=== PATIENT | male | born 1970 | race Caucasian/White ===

== ENCOUNTER 2018-03-01 04:15 | Inpatient (IN) ==
[2018-03-01 05:21] LABS: BASO# 0.03 X1000 (0.0-0.2); BASO% 0.2 % (0.0-0.8); EOS# 0.14 X1000 (0.0-0.7); EOS% 1.1 % (0.0-10.0); HEMATOCRIT 36.6 % (42.0-52.0); HEMOGLOBIN 10.9 g/dL (14.0-18.0); IMM GRAN# 0.02 X1000 (0.0-0.04); IMM GRAN% 0.2 % (0.0-0.5); LYMPH# 0.68 X1000 (1.2-3.4); LYMPH% 5.2 % (20.5-51.1); MCH 28.5 PG (27-31); MCHC 29.8 g/dL (33-37); MCV 95.6 FL (81-99); MONO# 0.59 X1000 (0.11-0.59); MONO% 4.5 % (1.7-9.3); MPV 10.9 FL (7.4-10.4); NEUT# 11.73 X1000 (1.4-6.5); NEUT% 88.8 % (42.2-75.2); PLT 353 X1000 (130-400); RBC 3.83 XMIL (4.7-6.1); RDW 17.7 % (11.5-14.5); WBC 13.19 X1000 (4.8-10.8)
[2018-03-01 05:55] LABS: LYMPHS 12 % (21-51); MONO 14 % (1-9); SEGS 74 % (42-75)
[2018-03-01 06:19] LABS: ALB/GLOB RATIO 0.7; ALBUMIN 3.4 g/dL (3.5-5.0); CALCIUM 8.5 mg/dL (8.8-10.2); CREATININE 6.2 mg/dL (0.7-1.2); POTASSIUM 5.2 mmol/L (3.5-5.1); TOTAL BILIRUBIN 0.37 mg/dL (0.20-1.00); TOTAL PROTEIN 8.3 g/dL (6.3-8.3)
[2018-03-01] MEDS ORDERED: NORCO-5 PO ONE (06:35)
--- NOTE | 2018-03-01 07:02 | Diag Imaging Result Doc PS360 ---
EXAM: CHEST-1 VIEW 03/01/2018 HISTORY: sob TECHNIQUE: AP portable at 0501 COMMENT: There is interstitial and alveolar opacity the latter particularly in the left upper lobe. There is blunting of the left costophrenic angle. IMPRESSION: Worsened pulmonary edema with possible pneumonia in the left upper lobe. Left pleural effusion. Electronically signed by Jackson Shin 03/01/2018 7:00 AM
[2018-03-01] MEDS ORDERED: DUONEB (A & A) INH ONE (07:14)
[2018-03-01] MEDS ORDERED: VANCOMYCIN 1 GM/NS 1 GM/250 ML IVPB IV ONE (07:24)
[2018-03-01] MEDS ORDERED: ZOSYN 2.25 GM in NS 50 ML IV ONE (07:25)
--- NOTE | 2018-03-01 07:31 | EKG Report ---
Test Performed on : 03/01/2018 04:57:58 AM Test Reason : sob Blood Pressure : / mmHG Vent. Rate : 083 BPM Atrial Rate : 083 BPM P-R Int : 124 ms QRS Dur : 102 ms QT Int : 380 ms P-R-T Axes : 065 024 185 degrees QTc Int : 446 ms Normal sinus rhythm. Possible Left atrial enlargement Left ventricular hypertrophy with repolarization abnormality Possible Inferior infarct (cited on or before 04-JAN-2018) Abnormal ECG When compared with ECG of 04-JAN-2018 12:48, T wave inversion more evident in Anterolateral leads Unconfirmed Result
--- NOTE | 2018-03-01 07:40 | PROVIDER DOCUMENTATION ---
HPI-General Adult - General Chief Complaint: Shortness of Breath Stated Complaint: DIFFICULTY BREATHING , DIALYSIS PATIENT Time Seen by Provider: 03/01/18 04:25 Source: patient, family Allergies/Adverse Reactions: Patient Allergies Allergy/AdvReac Type Severity Reaction Status Date / Time No Known Allergies Allergy Verified 03/01/18 07:51 Home Medications: Home Medication List Medication Instructions Recorded Confirmed Last Taken Type Albuterol Sulfate 1.25 mg IH Q4HR PRN 01/04/18 03/01/18 Unknown History Atorvastatin Calcium [Lipitor] 40 mg PO QHS 01/04/18 03/01/18 01/03/18 21:00 History Budesonide/Formoterol Inhaler 1 puff IH BID 01/04/18 03/01/18 01/04/18 07:00 History [Symbicort 160/4.5 Microgm Inhaler] Carvedilol [Coreg] 25 mg PO BID 01/04/18 03/01/18 01/04/18 07:00 History Clonidine HCl [Catapres] 0.2 mg PO TID 01/04/18 03/01/18 01/04/18 07:00 History Calcium Carbonate [Caltrate 600] 600 mg PO DAILY #90 tab 01/10/18 03/01/18 Unknown Rx Cholecalciferol (Vit D3) [Vitamin 5,000 unit PO DAILY #90 cap 01/10/18 03/01/18 Unknown Rx D] Hydrocodone Bit/Acetaminophen 1 tab PO TID PRN PRN #60 tab 01/10/18 03/01/18 Unknown Rx [Hydrocodon-Acetaminoph 7.5-325] - History of Present Illness -Gen Adult Nature of Presenting Problems: Presents tonight complaining of progressively worsening SOB today with associated non-productive cough. He has ESRD and is dialysis dependent. He was dialyzed on Tuesday. He also has a history of COPD and states taking neb treatments at home before coming in with minimal relief. Review of Systems - Adult - REVIEW OF SYSTEMS - ADULT Constitutional: reports: chills, fatique. denies: fever Eyes: denies: discharge, decreased vision Ears, Nose, Mouth & Throat: reports: no symptoms reported Cardiovascular: denies: chest pain, syncope Respiratory: reports: see HPI Gastrointestinal: reports: no symptoms reported Genitourinary: reports: no symptoms reported Musculoskeletal: reports: no symptoms reported Integumentary: reports: no symptoms reported Neurological: reports: no symptoms reported Psychiatric: reports: no symptoms reported Endocrine: reports: no symptoms reported Hematologic/Lymphatic: reports: no symptoms reported Allergic/Immunologic: reports: no symptoms reported Past History - Adult - PAST MEDICAL HISTORY-ADULT Review of Records: reports: Nursing Assessment Review, Medications Reviewed Major Childhood Illnesses: reports: denies history Cardiovascular: reports: denies history Respiratory: reports: denies history Gastrointestinal: reports: denies history Obstetrical/Gynecological: reports: denies history Genitourinary: reports: dialysis, ESRD Musculoskeletal: reports: denies history Neurological: reports: denies history Psychiatric: reports: denies history Endocrine/Immune: reports: denies history Other Conditions: reports: denies history - PRIOR SURGERIES/PROCEDURES Surgical/Procedure History: reports: reviewed, not pertinent - IMMUNIZATION STATUS Childhood Immunizations: See Nurse Assessment Flu Vaccine: See Nurse Assessment - FAMILY HISTORY Family History: reviewed, not pertinent Physical Exam-General - PHYSICAL EXAM-ADULT Initial Vital Signs Reviewed: Yes - CONSTITUTIONAL General Appearance: alert, mild distress - EYES Eyes: PERRL/EOMI, pink conjunctivae - HEAD, EARS, NOSE, MOUTH & THROAT HENMT: normocephalic/atraumatic, moist mucous membranes, normal ENT inspection - NECK Neck: non-tender, full range of motion, supple, normal inspection - RESPIRATORY Respiratory: chest non-tender, respiratory distress (mild.), decreased breath sounds (bilaterally.) - CARDIOVASCULAR Cardiovascular: normal peripheral pulses, regular rate, rhythm, no edema, no JVD - GASTROINTESTINAL (ABDOMEN) Abdominal Exam: normal bowel sounds, non tender, soft. negative: guarding, rebound, tenderness - LYMPHATIC Lymphatic: no adenopathy - MUSCULOSKELETAL Back Exam: normal inspection, no CVA tenderness, no vertebral tenderness Extremity: normal range of motion, non-tender, normal gait, no pedal edema, normal capillary refill - SKIN Integumentary: normal color, normal turgor, warm/dry. negative: diaphoresis, embolic lesions, erythema - NEUROLOGIC Neurologic: negative: facial droop, focal weakness, motor weakness, sensory deficit - PSYCHIATRIC Psych/Mental Status: normal mood/affect Progress - PLAN OF CARE/RESULTS Progress/Plan/Lab Results: Vital Signs - 8 hr 03/01/18 04:29 03/01/18 06:42 03/01/18 06:51 Temperature 97.9 F Pulse Rate 89 90 90 Respiratory Rate 22 20 20 Blood Pressure 164/94 181/107 181/107 O2 Sat by Pulse Oximetry 100 95 97 Laboratory Results - last 24 hr 03/01/18 03/01/18 03/01/18 04:57 04:57 04:57 WBC 13.19 H RBC 3.83 L Hgb 10.9 L Hct 36.6 L MCV 95.6 MCH 28.5 MCHC 29.8 L RDW Std Deviation 17.7 H Plt Count 353 MPV 10.9 H Immature Gran % (Auto) 0.2 Neut % (Auto) 88.8 H Lymph % (Auto) 5.2 L Reeves % (Auto) 4.5 Eos % (Auto) 1.1 Baso % (Auto) 0.2 Immature Gran # (Auto) 0.02 Neut # (Auto) 11.73 H Lymph # (Auto) 0.68 L Reeves # (Auto) 0.59 Eos # (Auto) 0.14 Baso # (Auto) 0.03 Segmented Neutrophils 74 Lymphocytes 12 L Monocytes 14 H Sodium 140 Potassium 5.2 H Chloride 94 L Carbon Dioxide 20 L Anion Gap 26 BUN 92 H Creatinine 6.2 H Estimated GFR/1.73 m2 10 BUN/Creatinine Ratio 15 Glucose 91 Calculated Osmolality 307 Calcium 8.5 L Total Bilirubin 0.37 AST 18 ALT 12 Alkaline Phosphatase 196 H Troponin T 0.760 H* Total Protein 8.3 Albumin 3.4 L Globulin 4.9 Albumin/Globulin Ratio 0.7 Orders Category Date Time Status CHEST-1 VIEW [RAD] Stat Exams 03/01/18 04:43 Completed BC [BLOOD CULTURE] [BLDCUL] Stat Lab 03/01/18 07:27 Uncollected CBC WITH DIFF [HEME] Stat Lab 03/01/18 04:57 Completed COMPREHENSIVE METABOLIC PANEL [CHEM] Stat Lab 03/01/18 04:57 Completed TROPONIN T Stat Lab 03/01/18 04:57 Completed Albuterol 2.5MG/Ipratrop 0.5MG [Duoneb (A & A)] Med 03/01/18 07:14 Discontinued 3 ml INH NOW ONE Hydrocodone/APAP 5 mg/325 mg [[place]-5] Med 03/01/18 06:35 Discontinued 1 each PO NOW ONE Piperacillin/Tazobactam [Zosyn] 2.25 gm Med 03/01/18 07:25 Active 0.9% Sodium Chloride Inj [Ns] 50 ml IV NOW Vancomycin 1 gm/Ns Med 03/01/18 07:24 Active 1 gm in 250 ml IV NOW Aerosol Treatments Routine Oth 03/01/18 07:14 Active Aerosol Treatments Stat Oth 03/01/18 07:14 Active EKG [EKG] Stat Ther 03/01/18 04:43 Draft Case discussed with Dr Cook who saw the pt in the ED. He will be dialized this AM. He also appears to have a JENNIFER infiltrate. He was treated for hospital acquired PNA. He was admitted to the hospitalist service. Case discussed with IRIS Quintana. Result Diagrams: 03/01/18 04:57 03/01/18 04:57 Departure - Departure Date of Disposition Decision: 03/01/18 Time of Disposition Decision: 07:38 DIAGNOSIS: ESRD (end stage renal disease) on dialysis Pulmonary edema Qualifiers: Chronicity: acute Qualified Code(s): J81.0 - Acute pulmonary edema Pneumonia Qualifiers: Pneumonia type: due to unspecified organism Laterality: left Lung location: upper lobe of lung Qualified Code(s): J18.1 - Lobar pneumonia, unspecified organism Disposition: ADMITTED INPATIENT 09 Certified Medical Emergency: Emergent Condition: Fair - Critical Care Note This patient required my direct & personal management of CC.: No Attestation - Physician/ PRICILA Attestation The physician spent face to face time with patient:: Yes Advanced Practice Provider documentation review:: Supervising physician onsite and consulted in the evaluation and care of this patient. The physician did have a face to face encounter with the patient.
--- NOTE | 2018-03-01 07:47 | NEPHROLOGY CONSULTATION ---
DATE: 03/01/2018 REASON FOR CONSULTATION: Shortness of breath and cough. I was contacted directly by the emergency room physician, Dr. Kay. HISTORY OF PRESENT ILLNESS: Mr. Blanton is a 47-year-old white male that we met during a recent hospitalization from January 04 until January 10. At that time, he had just recently moved to [place] from [place] state in order to live with his sister. He is dialyzing currently at the local [facility] every Tuesday, Tuesday, and Tuesday. He received his treatment on Tuesday. He was well until yesterday, when he had increasing shortness of breath through the day such that he used his nebulizer for several extra treatments during the day. However, he was able to go to bed last night without shortness of breath. He was awakened with dyspnea and this was not able to be controlled at home and so he came to the emergency room for evaluation. His initial evaluation was at 4:29, at which time, his blood pressure was 169/94, and he had normal O2 saturation of 100% on a closed face mask. Currently, he still remains short of breath. He admits to a cough but no sputum production. No chills, fever, sweats, night sweats. He has anorexia, but is eating somewhat better overall. He is continuing to lose weight, however. No chest pain. No nausea, no vomiting, no diarrhea. His functional status is significantly limited because of hip pain. The family relates an orthopedic problem with the left hip that is unresolved. PAST MEDICAL HISTORY: Diabetes, hypertension, COPD, CKD 5D. HOME MEDICATIONS: Include atorvastatin, clonidine, albuterol, budesonide, formoterol, carvedilol, clopidogrel, hydralazine, calcium carbonate, vitamin D, hydrocodone. ALLERGIES: None. SOCIAL HISTORY: He lives with his sister. Continues to smoke. FAMILY HISTORY: Otherwise noncontributory. REVIEW OF SYSTEMS: Otherwise noncontributory. PHYSICAL EXAMINATION: Vital Signs: Blood pressure 181/107, heart rate 90, respirations 20, afebrile. Generally: He is a chronically ill middle-aged man, who has increased work of breathing. Skin: Warm and dry with mild hyperpigmentation and bruises. Conjunctivae are pink and moist. Pupils are equal and round. Oropharynx is clear. Normal tongue. Neck: Supple. Trachea is midline. Neck vein distention is present. Heart: PMI is not palpable. Regular rate and rhythm without gallops, murmurs, rubs. Lungs: Have equal excursion, equal breath sounds. Few scattered wheezes and crackles bilaterally. Accessory muscle use is present with retractions. Abdomen: Soft and nontender. Bowel sounds are present. No organomegaly, or masses, or bruits. Extremities: Have 1+ edema. No clubbing or cyanosis. Neurologic: Grossly nonfocal. IMPRESSION AND PLAN: Acute respiratory distress secondary to pulmonary edema. Chest x-ray has bilateral infiltrates primarily in the mid lung zones, left greater than right. Cardiac silhouette is modestly enlarged. He has a modestly elevated white count. I expect that this is pulmonary edema only. We will treat him with dialysis this morning using a 2 potassium bath and a target of 3 to 4 L ultrafiltration. Reassess his symptoms thereafter. If resolved, he can be discharged. We will also plan nitroglycerin, now while are awaiting dialysis. He has a history of a left lung pneumonia, and has had a chest tube on that side. He had no chronic changes on the left as of his chest x-ray performed on the 05 of January. cc: González Arteaga MD
[2018-03-01] MEDS ORDERED: NS 2,000 ML MISC PRN (08:23)
[2018-03-01] MEDS ORDERED: TIGHT: 0.2 ML/HR FOR DIALYSIS MISC PRN (08:23)
[2018-03-01] MEDS ORDERED: HEPARIN IV PRN (08:23)
[2018-03-01] MEDS ORDERED: TYLENOL PO PRN (08:28)
[2018-03-01] MEDS: HEPARIN SUBQ SCH ×2 (08:30→21:31)
[2018-03-01] MEDS ORDERED: SYMBICORT 160/4.5 MICROGM INHALER INH SCH (09:00)
[2018-03-01] MEDS: VITAMIN D PO SCH (09:00)
[2018-03-01] MEDS: CALTRATE 600 PO SCH (09:00)
[2018-03-01] MEDS ORDERED: SOLU-MEDROL IV ONE (09:12)
[2018-03-01] MEDS: CATAPRES PO SCH ×3 (09:21→17:00)
[2018-03-01] MEDS: COREG PO SCH ×2 (09:22→21:32)
[2018-03-01 09:31] LABS: BLOOD TYPE ARTERIAL; HCO3-(ACT) 20.1 mmoll (20.0-26.0); METHB 0.7 % (0.0-1.5); O2(CT) 13.8 mL/dL (15.0-23.0); O2HB 91.7 % (95.0-99.0); PO2(98.6) 78 mmHg (60-100); SAMPLE BLOOD; SAO2 94.2 % (95.0-100.0); THB 10.6 g/dL (11.5-17.4)
[2018-03-01 09:35] LABS: pH(98.6) 7.18 (7.35-7.45)
[2018-03-01 09:36] LABS: ALLEN TEST NO; MODALITY CANNULA; PCO2(98.6) 61 mmHg (35-45)
[2018-03-01] MEDS: MUCINEX PO SCH ×2 (09:45→21:31)
--- NOTE | 2018-03-01 10:07 | Diag Imaging Result Doc PS360 ---
EXAM: CT THORAX W/O CONTRAST HISTORY: hypoxia; pna TECHNIQUE: CT chest without contrast COMPARISON: None. FINDINGS: There is a small right-sided pleural effusion measuring 2.1 cm posteriorly and inferiorly and an even smaller left-sided pleural effusion. The heart is enlarged and there is prominent atherosclerosis. The patient has severe emphysema and there is scarring in the apices. Dense infiltrates are found inferiorly and anteriorly in the left upper lobe and there are small underlying cavities. Smaller infiltrates are present in the lower lobes, left greater than right and there is also a 9 mm nodule posteriorly and inferiorly in the left lower lobe. Bronchial wall thickening is present. There is calcified mediastinal and hilar lymph nodes with scattered granuloma. There is body wall edema is present. There is a right jugular portacatheter. No pneumothorax. Dilatation of the aorta at the thoracic abdominal junction measuring 4.0 cm. There are enlarged lymph nodes in each axilla. IMPRESSION: 1.Bilateral infiltrates most prominent in the left upper lobe 2.Cardiomegaly with pleural effusions 3.Severe emphysema with fibrosis 4.Distal thoracic and upper abdominal aortic aneurysm. Prominent atherosclerosis. 5.Body wall edema 6.There is evidence of a prior granulomatous infection 7.Prominent axillary lymph nodes This exam was performed using automated exposure control, adjustment of mA or kV according to patient size, and/or use of iterative reconstruction technique. Electronically signed by Dima Lopez 03/01/2018 10:05 AM
[2018-03-01 10:25] LABS: IRON SATURATION 23 %; TIBC 160 ug/dL; TOTAL IRON 36 ug/dL (53-167); UNBOUND IRON 124 ug/dL (112-346)
--- NOTE | 2018-03-01 10:57 | HISTORY AND PHYSICAL ---
PRIMARY CARE PROVIDER: Currently no one local. PRIMARY REGIONAL SAFETY MANAGER: Dr. Imer Simmons in [place]. DIALYSIS LOCATION: He is otherwise being dialyzed at [facility] in [place] with Dr. Garcia. CHIEF COMPLAINT: Shortness of breath. HISTORY OF PRESENT ILLNESS: Mr. Chuckie Blanton is a 47-year-old, very ill- appearing male, anorexic, short of breath with a history of end-stage renal disease on dialysis who has received dialysis Tuesday and Tuesday, and is scheduled for dialysis today. Also a history of congestive heart failure, COPD on 3-4 L of oxygen at home, and recently closed right hip fracture that has not surgically been repaired. Now presents with complaint of shortness of breath that started around midnight. He denies any fever, chills, or chest pain. No other complaints. He states he has been taking his medications as prescribed. Showed up with hypoxia along with COPD exacerbation. Imaging shows that he has fluid volume overload on his lungs, and he also has a left upper lobe infiltrate. So, we will admit for volume overload, respiratory failure, and pneumonia. He has an elevated white blood cell count of 13. Lactate is normal at 0.6. Vital signs are currently stable and he is tolerating nasal cannula, but we are going to change him over to BiPAP and admit to [facility]. He will urgently go for hemodialysis. PAST MEDICAL HISTORY: 1. End-stage renal disease. Receives hemodialysis. Most recently was Tuesday due to clinic closed Tuesday for holiday. He is due for dialysis today. 2. New onset seizures diagnosed in November. No home medications for this. 3. Hypertension. 4. Peripheral vascular disease. 5. Congestive heart failure. 6. COPD on 3-4 L of home O2. 7. Pulmonary emboli with DVT history. Currently not on anticoagulation for that. 8. Coronary artery disease with cardiac stents. 9. [employer] work-incident related accident with blasting accidents of left wrist and has been disabled since. 10.Closed right hip fracture, unrepaired secondary to recent anticoagulation use. And he has been essentially bedbound since. PAST SURGICAL HISTORY: 1. VAS cath placement. 2. Testicular surgery at age 14. 3. Cardiac stents likely in [place]. SOCIAL HISTORY: He is . Lives close to [place], but currently living with his sister. Denies alcohol or illicit drug use. He continues to smoke cigarettes daily. FAMILY HISTORY: Denies. ALLERGIES: No known drug allergies. HOME MEDICATIONS: 1. Lipitor 40 mg p.o. nightly. 2. Albuterol inhaled q.4 hours p.r.n. 3. Symbicort one puff inhaled b.i.d. 4. Coreg 25 mg p.o. b.i.d. 5. Catapres 0.2 mg p.o. t.i.d. 6. Caltrate 600 mg p.o. daily. 7. Vitamin D 5000 units p.o. daily. 8. Hart 7.5 mg one tablet p.o. t.i.d. p.r.n. REVIEW OF SYSTEMS: Complains of right hip pain, shortness of breath, and feeling drowsy. Otherwise denies chest pain or any other complaints. So, a 14 point review of systems were completed and all were negative except those mentioned above in HPI. PHYSICAL EXAM: VITAL SIGNS: Temperature 97.9 degrees Fahrenheit, heart rate 95, respiratory rate 26, blood pressure 159/100. O2 saturation 97% on 6 L nasal cannula. GENERAL: Mr. Chuckie Blanton is a 47-year-old, ill-appearing male. He is drowsy. He is able to answer some questions appropriate. HEENT: Head: Normocephalic/atraumatic. Eyes: Pupils are equal, round and reactive to light. Extraocular movements are intact. ENT: Moist and pale mucous membranes. NECK: Trachea is midline. CARDIOVASCULAR: S1, S2. Regular rate and rhythm. No rubs, gallops or murmurs. No lower extremity edema. Plus-two dorsalis and radial pulses. Mild JVD. No carotid bruits. PULMONARY: Expiratory wheezes throughout. No accessory muscle use or work of breathing noted. Currently tolerating 6 L. GASTROINTESTINAL: Soft, nontender, nondistended. Positive bowel sounds x4 that are hypoactive. EXTREMITIES: Unable to move right lower extremity due to right hip pain from recent fracture. Otherwise, all other extremities move equally. He has generalized weakness. NEUROLOGIC: Alert and oriented to time, place and year. Follows commands. Sensory is intact. SKIN: Warm, dry, intact, but very pale. Scattered black dots on the left hand and wrist area. LABORATORY DATA: White blood cell 13.0, hemoglobin 10, hematocrit 36, platelet count 353,000. ABG: pH 7.18, pCO2 61, pO2 78, bicarb 20. Saturation negative 6. Saturation of 91%. Lactate 0.6 and this is on 5 L nasal cannula. Sodium 140, potassium 5.2, BUN 92, creatinine 6.2, glucose 91, calcium 8.5, bilirubin 0.37. AST 18, ALT 12. Troponin trends 0.760, 0.673. Albumin 3.4. IMAGIN. Chest x-ray worsening pulmonary edema with possible pneumonia in the left upper lobe, left pleural effusion. 2. Chest CT performed but not reported yet. 3. EKG normal sinus rhythm with possible left atrial enlargement. Rate is 83 and QTc is 446. IMPRESSION AND PLAN: 1. Acute hypoxemic hypercarbic respiratory failure with chronic obstructive pulmonary disease exacerbation. He will be started on steroids. Change him to BiPAP. He is retaining CO2 with a low pH. The pH should improve with hemodialysis. We will consult Pulmonology. He will have nebulizers as well. 2. Left upper lobe pneumonia healthcare associated secondary to hemodialysis clinic. We will start him on broad-spectrum antibiotics, and order a sputum culture and pulmonary toilet. 3. Fluid volume overload secondary to end-stage renal disease and congestive heart failure. He is going for urgent hemodialysis today. Dr. Garcia is on board. He was actually scheduled for hemodialysis today. His last hemodialysis treatments were on Tuesday due to holiday schedule. 4. Congestive heart failure. Could be acute on chronic. We will order an echocardiogram for in the morning to evaluate heart function and we will limit fluid intake. He will be receiving dialysis today. 5. Hypertension. We are continuing his Coreg and clonidine. 6. History of PE and DVT. No anticoagulation noted that he has been on at home. He had a recent history of being on anticoagulation, but the medication name was never verified. 7. Coronary artery disease with history of myocardial infarction in 2018. He will continue on Lipitor and Coreg. 8. Recent new onset seizure, I believe in November. He is not on any medication for this as well, nor has he had any seizures. 9. Recent closed right hip fracture in October 2017. No surgical repair. He has been bedbound since then. Apparently he was supposed to have evaluation of treatment for this in [place], possibly [facility]. He did not have surgical repair due to being on anticoagulation. He is not on any now but is causing him some high hip pain, so we will continue him on his Hart. Reading Dr. Shah's note from his last admit says acetabular fracture does need to be fixed, but unfortunately we are unable to perform that type of procedure here. Otherwise, he needs to go to [facility] to have it fixed or have another orthopedic surgeon who can do the specific procedure. He is to continue to be nonweight bearing. 10.Anemia, chronic. We will perform anemia labs, but this is likely secondary to end-stage renal disease. 11.Tobacco abuse. Cessation discussed. 12.Deep venous thrombosis prophylaxis. Heparin subcutaneous twice daily. Dictated by SNEHA Barajas for Jhon Mancia MD cc: MD Lilian Crenshaw CRNP Gregory S. Cheatham, MD [facility]
[2018-03-01 11:28] LABS: FERRITIN 516 ng/mL (30-400)
[2018-03-01] MEDS: DUONEB (A & A) INH SCH ×4 (11:30→23:38)
[2018-03-01] MEDS: NORCO-7.5 PO PRN ×2 (14:22→21:32)
[2018-03-01] MEDS: SOLU-MEDROL IV SCH (17:45)
[2018-03-01] MEDS: ZOSYN 2.25 GM in NS 50 ML IV SCH (17:45)
[2018-03-01] MEDS: PULMICORT INH SCH (19:43)
[2018-03-01] MEDS: MUCOMYST 10% INH SCH (19:43)
[2018-03-01] MEDS: LIPITOR PO SCH (21:31)
[2018-03-01] MEDS: ZYVOX 600 MG/D5W 600 MG/300 ML IVPB IV SCH (21:32)
[2018-03-02] MEDS: ZOSYN 2.25 GM in NS 50 ML IV SCH ×3 (01:22→17:14)
[2018-03-02] MEDS: SOLU-MEDROL IV SCH ×3 (01:22→17:13)
[2018-03-02] MEDS: NORCO-7.5 PO PRN ×3 (02:10→18:22)
[2018-03-02] MEDS: DUONEB (A & A) INH SCH ×7 (03:40→23:00)
--- NOTE | 2018-03-02 05:16 | HISTORY AND PHYSICAL ---
ADDENDUM: Patient seen and examined by myself. Full note dictated and discussed with nurse practitioner. The patient presented to the hospital with increased cough, congestion, shortness of breath, increased wheezing. Blood pressure was noted to be elevated at 191/107. White count elevated at 13. Potassium 5.2. Patient has end-stage renal disease, currently on dialysis. We will admit him to the hospital. We will go to dialysis. We will place him on antibiotics for his pneumonia, and will follow. cc: Jhon Mancia MD
[2018-03-02 06:25] LABS: HEMATOCRIT 34.2 % (42.0-52.0); HEMOGLOBIN 10.2 g/dL (14.0-18.0); LYMPH# 0.28 X1000 (1.2-3.4); LYMPH% 4.2 % (20.5-51.1); MCH 28.6 PG (27-31); MCHC 29.8 g/dL (33-37); MCV 95.8 FL (81-99); MONO# 0.08 X1000 (0.11-0.59); MONO% 1.2 % (1.7-9.3); NEUT# 6.35 X1000 (1.4-6.5); NEUT% 94.6 % (42.2-75.2); PLT 280 X1000 (130-400); RBC 3.57 XMIL (4.7-6.1); RDW 17.9 % (11.5-14.5); WBC 6.71 X1000 (4.8-10.8)
[2018-03-02 07:03] LABS: ALB/GLOB RATIO 0.7; ALBUMIN 2.9 g/dL (3.5-5.0); CALCIUM 8.3 mg/dL (8.8-10.2); CREATININE 4.2 mg/dL (0.7-1.2); POTASSIUM 4.6 mmol/L (3.5-5.1); TOTAL BILIRUBIN 0.41 mg/dL (0.20-1.00); TOTAL PROTEIN 7.2 g/dL (6.3-8.3)
[2018-03-02 07:18] LABS: LYMPHS 8 % (21-51); SEGS 92 % (42-75)
--- NOTE | 2018-03-02 07:22 | PULMONOLOGY CONSULTATION ---
DATE: 03/01/2018 REQUESTING PHYSICIAN: Dr. Mancia. REASON FOR CONSULTATION: Chronic obstructive pulmonary disease with respiratory failure. HISTORY OF PRESENT ILLNESS: Mr. Blanton is a 47-year-old male with COPD, ongoing tobacco use, end- stage renal disease on hemodialysis for the last year and a half, who recently moved from [place], [place], to [place] to be near his sister. The patient was evaluated in the emergency room for increased cough and increased shortness of breath. He has a wet cough but denies sputum production. He denies fevers or chills. He reports he has lost approximately 40 pounds over the last year. He underwent hemodialysis earlier today and his breathing has significantly improved. PAST MEDICAL HISTORY: 1. End-stage kidney disease on hemodialysis. 2. Coronary artery disease status post stent placement. 3. Dyslipidemia. 4. Hypertension. 5. COPD. 6. History of deep venous thrombosis and pulmonary emboli. 7. Closed hip fracture with nonsurgical repair due to chronic anticoagulation. 8. Peripheral vascular disease. 9. New onset seizure disorder. 10.History of undescended testicle requiring surgery. SOCIAL HISTORY: Ongoing tobacco use. The patient continues to smoke. Denies alcohol use. He is cared for by his sister. FAMILY HISTORY: Noncontributory to current presentation. REVIEW OF SYSTEMS: Notable for chronic pain, shortness of breath on presentation, cough and weight loss. PHYSICAL EXAMINATION: General: Reveals a frail, chronically ill-appearing male with a BMI of 16 who appears much older than his stated age of 47. He had 8 liters of fluid removed on hemodialysis. Vital Signs: Blood pressure 154/83, heart rate 75, respiratory rate 17, oxygen saturation 98%. HEENT: Pupils are equal and reactive. Oropharynx is clear. Neck: Supple. Chest: Reveals coarse rhonchi bilaterally. Cardiac: S1 and S2. Abdomen: Soft. Extremities: Reveal chronic vascular insufficiency. LABORATORY DATA: Blood cultures and sputum cultures are pending. White blood count 13.2, hemoglobin 10.9, platelet count 353,000. Sodium 140, potassium 5.2, chloride 94, bicarbonate 20, BUN 92, creatinine 6.2. Arterial blood gas performed during respiratory distress: pH 7.19, pCO2 61, pO2 78. Chest x-ray reveals a new pneumonia in the left upper lobe and possibly left base with pulmonary edema. CT scan of the thorax reveals bilateral edema, cardiomegaly with pleural effusions, severe emphysema, prominent vascular atherosclerosis, prominent axillary lymph nodes. IMPRESSION: A 47-year-old with severe chronic obstructive pulmonary disease, ongoing tobacco use, pulmonary edema due to fluid overload, pneumonia, acute hypoxemic and acute hypercapnic respiratory failure, chronic obstructive pulmonary disease with ongoing tobacco use, abnormal weight loss with severe protein calorie malnutrition. RECOMMENDATIONS: 1. Agree with aggressive dialysis as has been completed. 2. Agree with broad spectrum antibiotics covering both gram negative and gram positive organisms. Presentation is not typical for an atypical pneumonia. 3. Encourage the patient to discontinue tobacco use. 4. Recommend followup chest x-ray and CT scan to document clearing to ensure the patient does not have an underlying malignancy given his ongoing weight loss. cc: Juve Tanner MD
--- NOTE | 2018-03-02 07:31 | NEPHROLOGY PROGRESS NOTE ---
DATE: 03/02/2018 SUBJECTIVE: The patient is sitting up in bed. He is in the process of exchanging his BiPAP for a nasal cannula. States his breathing is significantly better today. He feels much better. OBJECTIVE: Vital Signs: Temperature 97.8 degrees, pulse 71, respiratory rate 18, blood pressure 143/83. Intake not measured. Output is documented at 8 L; however, that is more likely 4 L. Physical Examination: General: This is a chronically ill-appearing, middle- aged gentleman resting in bed. No acute distress. HEENT: Normocephalic, atraumatic. MARITA. Oral mucosa appears dry. Neck: Supple. There is no JVD in the upright position. Cardiovascular: Reveals regular rate and rhythm. There is no murmur or gallop appreciated. Pulmonary: He has equal excursion. He has no increased work of breathing currently. There is no wheeze or rhonchi noted today. Abdomen: Soft, with positive bowel sounds. : Not inspected. Extremities: There is no edema, clubbing, or cyanosis. He is moving all extremities without difficulty. Integumentary: Skin is warm and dry. Tunnel dialysis catheter insertion site in the right upper chest wall is clean, dry, and intact. Lab Data: Pending. ASSESSMENT AND PLAN: 1. Chronic kidney disease 5D with previous fluid overload. We had a goal yesterday of 4 L ultrafiltration. From a renal perspective, he can be discharged at the discretion of the primary and continue to follow up in the outpatient clinic. 2. Bilateral infiltrates, left greater than right, history of left lung pneumonia with a previous chest tube. He is currently on Zyvox, piperacillin, and tazobactam. No changes are needed. Dictated by SNEHA No for González Arteaga MD Face to face encounter, data reviewed, discussed with Yecenia Arreola on 03/02/17. I agree with the above assessment and plan of care. cc: González Arteaga MD [facility]
--- NOTE | 2018-03-02 07:41 | Diag Imaging Result Doc PS360 ---
EXAM: CHEST-1 VIEW HISTORY: Pneumonia TECHNIQUE: Chest single view COMPARISON: 03/01/2018 FINDINGS: The lungs are well expanded. No change in the double lumen right jugular catheter. No pneumothorax. No cardiomegaly. Interval improvement in the infiltrates. The remaining infiltrates are most dominant in the mid left lung. There is a tiny left pleural effusion. IMPRESSION: Overall interval improvement. Electronically signed by Dima Lopez 03/02/2018 7:39 AM
[2018-03-02] MEDS ORDERED: ROCEPHIN 1 GM in NS 50 ML IV SCH (08:30)
[2018-03-02] MEDS: MUCOMYST 10% INH SCH ×2 (11:52→23:00)
[2018-03-02] MEDS: PULMICORT INH SCH ×2 (11:52→19:32)
[2018-03-02] MEDS: ZYVOX 600 MG/D5W 600 MG/300 ML IVPB IV SCH ×2 (12:01→21:37)
[2018-03-02] MEDS: COREG PO SCH ×2 (12:02→21:36)
[2018-03-02] MEDS: HEPARIN SUBQ SCH ×2 (12:02→21:36)
[2018-03-02] MEDS: CALTRATE 600 PO SCH (12:03)
[2018-03-02] MEDS: VITAMIN D PO SCH (12:03)
[2018-03-02] MEDS: MUCINEX PO SCH ×2 (12:03→21:36)
[2018-03-02] MEDS: CATAPRES PO SCH ×3 (12:04→17:12)
--- NOTE | 2018-03-02 12:35 | PROGRESS NOTE ---
DATE: 03/02/2018 SUBJECTIVE: Mr. Blanton is followed by Dr. Nic Mcmullen in [place]. He is dialyzed at the [facility] in [place]. He is 47 years old who became short of breath. End-stage renal disease, on dialysis. He receive dialysis on Tuesday, Tuesday and scheduled dialysis today, the day of admission 03/01/2018. He has history of congestive heart failure, COPD, 3 to 4 L oxygen he uses at home per nasal cannula. He recently had a right closed hip fracture that has I do not believe had been repaired, so he was admitted. He got dialysis yesterday. He is feeling better today. OBJECTIVE: Temperature 98.9, pulse 86, respirations 18, blood pressure 151/86. Pupils are equal and round. Lungs are clear in all lung ricardo. Cardiovascular: Regular rhythm and rate without murmur or S3. Abdomen is soft. Skin is warm and dry. Nephrology is following Dr. Arteaag. ASSESSMENT AND PLAN: 1. He has bilateral infiltrates. History of left lung pneumonia with previous chest tube in the past. Currently is on Zyvox, piperacillin and tazobactam. Chest x-ray from yesterday: Overall interval improvement in the infiltrates as well. Dr. Tanner follows. He has severe chronic obstructive pulmonary disease with ongoing tobacco use. Pulmonary edema due to fluid overload and treating for pneumonia. 2. Acute hypoxemia. 3. Acute hypercapnic respiratory failure. 4. Chronic obstructive pulmonary disease exacerbation. 5. Ongoing tobacco use. Seems to be improving. 6. He had a closed right hip fracture unrepaired secondary to recent anticoagulation and had been essentially bed bound. REVIEW OF ORDERS: I do not see any change at this point. cc: José Miguel Badillo MD
--- NOTE | 2018-03-02 14:42 | ECHO REPORT ---
ORDER DATE: 03/02/2018 INTERPRETING PHYSICIAN: Dr. Skip Ziegler. ECHOCARDIOGRAPHIC MEASUREMENTS: 1. Interventricular septum 1.2 cm. 2. Left ventricular posterior wall 1.1 cm. 3. Diastolic diameter 5.7 cm. 4. Left atrium 3.8 cm. 5. Aorta 3.3. SUMMARY OF THE 2-DIMENSIONAL IMAGIN. Normal left ventricular cavity size. Estimated ejection fraction of 35% to 40%. There is inferior wall hypokinesis and mild global hypokinesis. There is diastolic dysfunction. 2. There is left atrial enlargement. 3. The aortic valve leaflets are sclerosed, trileaflet. 4. There is mitral annular calcification. 5. Tricuspid valve is normal. Pulmonic valve is normal. 6. There is no aortic stenosis. There is mild aortic regurgitation. 7. There is mild mitral regurgitation. 8. Mild tricuspid regurgitation. Peak velocity across the tricuspid valve was 3.3 m/sec. Pulmonary artery systolic pressure of 53 mmHg. 9. There is left atrial enlargement. 10. There is no pericardial effusion or obvious intracardiac mass or thrombus seen. cc: MD Lilian Fuller CRNP
[2018-03-02] MEDS: LIPITOR PO SCH (21:36)
[2018-03-02] MEDS ORDERED: MORPHINE IV ONE (23:56)
[2018-03-03] MEDS: ZOSYN 2.25 GM in NS 50 ML IV SCH ×4 (00:30→23:54)
[2018-03-03] MEDS: SOLU-MEDROL IV SCH ×3 (00:30→22:19)
[2018-03-03] MEDS: NORCO-7.5 PO PRN ×3 (01:36→20:08)
[2018-03-03] MEDS: DUONEB (A & A) INH SCH ×6 (03:18→23:15)
--- NOTE | 2018-03-03 05:17 | PULMONOLOGY PROGRESS NOTE ---
DATE: 03/02/2018 SUBJECTIVE: The patient is without new complaints. He has no increased work of breathing. Family are at the bedside visiting. OBJECTIVE: Vital signs: Patient had been afebrile for the last 24 hours. Blood pressure 166/89, heart rate 73, respiratory rate 22, oxygen saturation 100% on 3 L per nasal cannula. HEENT: Pupils are equal and reactive. Oropharynx is clear. Neck: Supple. Chest: Reveals prolonged expiratory phase with scattered rhonchi. Cardiac: S1, S2. Abdomen: Soft and without hepatosplenomegaly. Extremities: Without edema. LABORATORIES: Sputum culture reveals gram-negative lexus. White blood count 6.7, hemoglobin 10.1, platelet count 280,000. Chest x-ray reveals significant decrease in pulmonary edema. He has continued infiltrate in the left mid lung zone with a tiny left pleural effusion. IMPRESSION: A 47-year-old with 1. Severe chronic obstructive pulmonary disease. 2. Pneumonia. 3. Fluid overload. 4. Acute hypoxemic and hypercapnic respiratory failure. 5. Severe protein calorie malnutrition. 6. Ongoing tobacco use. Clinically, he is improving. RECOMMENDATIONS: 1. Continue broad-spectrum antibiotics for pneumonia. If gram-positive organism not identified tomorrow, recommend discontinuing Zyvox. 2. Continue bronchial hygiene. 3. Encourage patient to discontinue tobacco use. cc: Juve Tanner MD
[2018-03-03 06:32] LABS: HEMATOCRIT 33.8 % (42.0-52.0); HEMOGLOBIN 10.1 g/dL (14.0-18.0); MCH 28.9 PG (27-31); MCHC 29.9 g/dL (33-37); MCV 96.8 FL (81-99); RBC 3.49 XMIL (4.7-6.1); RDW 17.8 % (11.5-14.5); WBC 9.09 X1000 (4.8-10.8)
[2018-03-03 07:09] LABS: ALBUMIN 3.1 g/dL (3.5-5.0); CALCIUM 8.3 mg/dL (8.8-10.2); CREATININE 5.3 mg/dL (0.7-1.2); PHOSPHORUS 7.4 mg/dL (2.7-4.5); POTASSIUM 5.1 mmol/L (3.5-5.1)
[2018-03-03] MEDS ORDERED: TIGHT: 0.2 ML/HR FOR DIALYSIS MISC PRN (07:55)
[2018-03-03] MEDS ORDERED: NS 2,000 ML MISC PRN (07:55)
[2018-03-03] MEDS ORDERED: HEPARIN IV PRN (07:55)
[2018-03-03] MEDS: MUCOMYST 10% INH SCH ×2 (08:13→19:15)
[2018-03-03] MEDS: PULMICORT INH SCH ×2 (08:13→19:15)
--- NOTE | 2018-03-03 10:57 | NEPHROLOGY PROGRESS NOTE ---
DATE: 03/03/2018 SUBJECTIVE: He is eating his breakfast. Shortness of breath is much better. He does complain of some leg pain as well as a tremor. OBJECTIVE: Vital Signs: Blood pressure 174/115, heart rate 73, respiration 18, afebrile. General: No acute distress. Skin: Warm and dry. Conjunctivae are pink. Neck: Neck veins are not distended. Heart: Regular with no gallops. Lungs: Equal with scattered wheezes. Abdomen: Soft, flat, nontender. Bowel sounds present. Extremities: Trace edema. No clubbing or cyanosis. IMPRESSION AND PLAN: Chronic kidney disease 5D. We will attempt to 4 L ultrafiltration today and then in an attempt to address both dyspnea and hypertension. If his blood pressure remains high, he may need addition of a calcium-channel franklin, and I would just start with amlodipine 10 mg daily. However, again, his blood pressure has been reasonably well controlled until last evening, so I would observe after dialysis before making this decision. Electrolytes and acid-base are in target. Anemia in target. No changes. cc: González Arteaga MD
[2018-03-03] MEDS ORDERED: NORCO-7.5 PO PRN (13:54)
[2018-03-03] MEDS: ZYVOX 600 MG/D5W 600 MG/300 ML IVPB IV SCH (14:05)
[2018-03-03] MEDS: MUCINEX PO SCH ×2 (14:06→20:07)
[2018-03-03] MEDS: COREG PO SCH ×2 (14:06→20:07)
[2018-03-03] MEDS: CATAPRES PO SCH ×3 (14:07→16:13)
[2018-03-03] MEDS: CALTRATE 600 PO SCH (14:07)
[2018-03-03] MEDS: HEPARIN SUBQ SCH ×2 (14:07→14:12)
[2018-03-03] MEDS: VITAMIN D PO SCH (14:07)
[2018-03-03] MEDS ORDERED: DILAUDID IV PRN (15:01)
--- NOTE | 2018-03-03 15:42 | PROGRESS NOTE ---
DATE: 03/03/2018 SUBJECTIVE: Mr. Blanton is complaining of a lot of pain in his hip and legs, and he wants his Dilaudid. I have tried to increase the [place] p.o, but it is not holding the pain. OBJECTIVE: Temperature 97.4, pulse 85, respirations 18, blood pressure 174/115. Pupils are equal and round. Lungs clear in all lung ricardo. Cardiovascular: Regular rhythm and rate without murmur or S3. Abdomen is soft. Skin is warm and dry. ASSESSMENT AND PLAN: 1. Chronic kidney disease stage 5D. Continue dialysis. Volume status and electrolytes look good. Blood pressure remains high. He may need an additional calcium channel franklin, and Dr. Al suggested amlodipine 10 mg a day. His blood pressure appears to be reasonably controlled at this point. 2. Severe chronic obstructive pulmonary disease. Recent pneumonia, treated. Air and gas exchange doing good. 3. Acute hypoxemic hypercapnic respiratory failure. 4. Severe protein calorie malnutrition. 5. He is demanding more for pain medicine. I will have the nurses be careful. I may change his Dilaudid to 0.5. maybe q.6 hours p.r.n. and I will decrease his [place]. cc: José Miguel Badillo MD
[2018-03-03] MEDS: DILAUDID IV PRN ×2 (16:12→22:19)
[2018-03-03] MEDS: LIPITOR PO SCH (20:07)
[2018-03-04] MEDS: HEPARIN SUBQ SCH ×3 (02:26→22:02)
[2018-03-04] MEDS: ZYVOX 600 MG/D5W 600 MG/300 ML IVPB IV SCH ×2 (02:35→12:50)
[2018-03-04] MEDS: NORCO-7.5 PO PRN ×3 (02:35→14:43)
[2018-03-04] MEDS: DUONEB (A & A) INH SCH ×6 (03:15→22:38)
[2018-03-04] MEDS: SOLU-MEDROL IV SCH ×3 (04:36→22:03)
[2018-03-04] MEDS: DILAUDID IV PRN ×4 (04:36→22:17)
[2018-03-04 07:00] LABS: HEMOGLOBIN 12.1 g/dL (14.0-18.0); MCHC 29.5 g/dL (33-37); MCV 98.3 FL (81-99); MPV 11.2 FL (7.4-10.4); RBC 4.17 XMIL (4.7-6.1); WBC 7.73 X1000 (4.8-10.8)
[2018-03-04] MEDS: MUCOMYST 10% INH SCH ×2 (07:49→19:38)
[2018-03-04] MEDS: ZOSYN 2.25 GM in NS 50 ML IV SCH ×2 (07:53→16:22)
[2018-03-04] MEDS: PULMICORT INH SCH ×2 (08:21→19:38)
[2018-03-04] MEDS: CATAPRES PO SCH ×3 (08:29→16:22)
[2018-03-04] MEDS: COREG PO SCH ×2 (08:29→22:03)
[2018-03-04] MEDS: CALTRATE 600 PO SCH (08:29)
[2018-03-04] MEDS: MUCINEX PO SCH ×2 (08:30→22:02)
[2018-03-04] MEDS: VITAMIN D PO SCH (08:30)
--- NOTE | 2018-03-04 10:13 | PROGRESS NOTE ---
DATE: 03/04/2017 SUBJECTIVE: Mr. Blanton is feeling much better. He is eating his breakfast. No pain at the present time. Breathing comfortably. OBJECTIVE: Temperature 98.5, pulse 75, respirations 17, blood pressure 190/98. Pupils are equal and round. Lungs are clear in all lung ricardo. Cardiovascular: Regular rhythm and rate without murmur or S3. Abdomen is soft. Skin is warm and dry. Urine output is 3720. ASSESSMENT AND PLAN: 1. Chronic kidney disease, stage 5D. Volume status, electrolytes, and acid base look good. 2. Blood counts look very good. Hematocrit 41, hemoglobin 12. 3. Severe chronic obstructive pulmonary disease. Recent pneumonia which has been treated. Breathing comfortably. Good air and gas exchange. 4. He presented with acute hypoxemic hypercapnic respiratory failure and that has improved. 5. Severe protein calorie malnutrition. His p.o. intake is good. 6. He has a closed hip fracture with nonsurgical repair due to his anticoagulation. So, repair is I think planned in the future. He says he is going to have to have this done either at [place] or [facility]. 7. Peripheral vascular disease. 8. New onset seizure disorder. 9. History of coronary artery disease. 10. History of hypertension. REVIEW OF MEDICATIONS AND ORDERS: 1. He is on Coreg 25 mg b.i.d. 2. Calcium carbonate 600 mg a day. 3. He is getting Pulmicort 0.5 inhalation q. 12. 4. Lipitor 40 mg a day. 5. Guaifenesin ER 1200 mg q.12. 6. Vitamin D3 at 5000 units daily. 7. Catapres 0.2 mg t.i.d. 8. Heparin 5000 units subcutaneous q.12. 9. I am giving him some Dilaudid 0.5 mg q.6 hours p.r.n. pain. This seems to help. 10. Methylprednisone 60 mg IV q. 8, so I think we can cut down to 40 q. 12. 11. He is still on Zosyn which was started on 03/01/2018, 2.25 g IV q. 8. 12. Linezolid 600 mg q.12. Sputum grew out Pseudomonas aeruginosa. That was from 03/01/2018. Blood cultures x2 with no growth on 03/01/2018. Most recent chest x-ray was on the , so plan to check another chest x- ray in the morning to see if we get him off antibiotics. cc: José Miguel Badillo MD
[2018-03-04 10:19] LABS: ALBUMIN 3.1 g/dL (3.5-5.0); CALCIUM 8.5 mg/dL (8.8-10.2); CREATININE 4.2 mg/dL (0.7-1.2); PHOSPHORUS 6.1 mg/dL (2.7-4.5); POTASSIUM 4.7 mmol/L (3.5-5.1)
--- NOTE | 2018-03-04 14:45 | NEPHROLOGY PROGRESS NOTE ---
DATE: 03/04/2018 SUBJECTIVE: He states he is doing well. States his shortness of breath is improved. No cough or sputum. OBJECTIVE: Vital Signs: Blood pressure 194/105, heart rate 82, respirations 20, temperature 99.3 degrees. Generally: Frail, cachectic appearing middle-aged man, no acute distress. Skin: Warm and dry. Conjunctivae are pink. Neck: Neck veins are not distended. Heart: Regular. No gallops. Lungs: Equal. No wheezes or crackles today. Abdomen: Soft, nontender. Bowel sounds present. Extremities: No edema, clubbing or cyanosis. IMPRESSION: 1. Chronic kidney disease 5D. He appears euvolemic. Electrolytes and acid-base are acceptable. His next dialysis treatment will be Tuesday. 2. Hypertension. Progressively worse. His home blood pressure regimen includes clonidine 0.2 t.i.d., carvedilol 25 mg b.i.d. His carvedilol is continued at his routine home dose. Clonidine is also ordered at his normal home dose. I will add amlodipine 5 mg daily to his regimen. No other changes. cc: González Arteaga MD
[2018-03-04] MEDS: NORVASC PO SCH (14:49)
[2018-03-04] MEDS: LIPITOR PO SCH (22:02)
[2018-03-05] MEDS: ZOSYN 2.25 GM in NS 50 ML IV SCH ×3 (00:25→16:49)
[2018-03-05] MEDS: NORCO-7.5 PO PRN ×3 (00:25→15:22)
[2018-03-05] MEDS: ZYVOX 600 MG/D5W 600 MG/300 ML IVPB IV SCH ×2 (01:31→13:17)
[2018-03-05] MEDS: DUONEB (A & A) INH SCH ×6 (03:19→22:15)
[2018-03-05] MEDS: DILAUDID IV PRN ×4 (04:34→21:59)
[2018-03-05] MEDS: SOLU-MEDROL IV SCH ×3 (04:35→21:56)
[2018-03-05 04:37] LABS: HEMATOCRIT 34.6 % (42.0-52.0); HEMOGLOBIN 10.5 g/dL (14.0-18.0); MCH 28.7 PG (27-31); MCHC 30.3 g/dL (33-37); MCV 94.5 FL (81-99); MPV 9.9 FL (7.4-10.4); RBC 3.66 XMIL (4.7-6.1); RDW 17.6 % (11.5-14.5); WBC 5.09 X1000 (4.8-10.8)
[2018-03-05 04:56] LABS: CREATININE 4.7 mg/dL (0.7-1.2); POTASSIUM 4.5 mmol/L (3.5-5.1)
[2018-03-05] MEDS: PULMICORT INH SCH ×2 (07:30→19:15)
[2018-03-05] MEDS: MUCOMYST 10% INH SCH ×2 (07:30→19:15)
[2018-03-05] MEDS: NORVASC PO SCH (08:56)
[2018-03-05] MEDS: COREG PO SCH ×2 (08:56→21:56)
[2018-03-05] MEDS: CALTRATE 600 PO SCH (08:56)
[2018-03-05] MEDS: MUCINEX PO SCH ×2 (08:56→21:56)
[2018-03-05] MEDS: VITAMIN D PO SCH (08:57)
[2018-03-05] MEDS: HEPARIN SUBQ SCH ×2 (08:57→21:57)
[2018-03-05] MEDS: CATAPRES PO SCH ×3 (08:57→16:49)
--- NOTE | 2018-03-05 10:05 | Diag Imaging Result Doc PS360 ---
EXAM: CHEST-PORTABLE 03/05/2018 HISTORY: pneumonia TECHNIQUE: AP portable at 0817 COMMENT: There is ill-defined opacity in the left lower lobe, and lower left upper lobe. This was also present on 03/02/2018. Compared to 03/01/2018 there has been definite improvement in the left upper lobe and the fluid collection which was present loculated in the left apex. The interstitial opacity in the right lung is also improved since that time although not perceptibly since 03/02/2018. IMPRESSION: Residual pneumonia in the left upper and lower lobes. Electronically signed by Jackson Shin 03/05/2018 10:03 AM
--- NOTE | 2018-03-05 12:55 | PROGRESS NOTE ---
DATE: 03/05/2018 Mr. Blanton is feeling comfortable, no pain at this time. He rested well last night. No respiratory difficulties and is eating well. OBJECTIVE: Temp 97.7 degrees, pulse 70, respirations 16, blood pressure 116/52. Pupils are equal and round. No distended neck veins. Lungs clear in all lung ricardo. Cardiovascular regular rhythm and rate without murmur or S3. Abdomen soft. Skin is warm and dry. Chest x-ray from this morning, residual pneumonia left upper and lower lobes but improved. ASSESSMENT AND PLAN: 1. Chronic kidney disease stage 5D. He is euvolemic. Electrolytes and acid base acceptable. Next dialysis I guess will be on Tuesday. This is Tuesday. 2. Hypertension. His blood pressure regimen includes Coreg 25 mg b.i.d., and clonidine 0.2 mg [address] Arteaga has added Norvasc 5 mg a day. 3. Fractured femur. Closed fracture. 4. Protein calorie malnutrition. He is eating well now. 5. Peripheral vascular disease. 6. History of new onset of seizure disorder. 7. History of coronary artery disease. Note he presented with acute hypoxemic hypercapnic respiratory failure. This is improved. Pneumonia seems to be improving. Hopefully discharge the first of the week. He will have to pursue getting his femur fixed. cc: José Miguel Badillo MD
[2018-03-05] MEDS: LIPITOR PO SCH (21:56)
[2018-03-06] MEDS: ZOSYN 2.25 GM in NS 50 ML IV SCH ×3 (00:06→16:45)
[2018-03-06] MEDS: NORCO-7.5 PO PRN ×4 (00:06→21:15)
[2018-03-06] MEDS: ZYVOX 600 MG/D5W 600 MG/300 ML IVPB IV SCH ×2 (01:47→13:33)
[2018-03-06] MEDS: DUONEB (A & A) INH SCH ×6 (03:20→23:10)
[2018-03-06] MEDS: DILAUDID IV PRN ×3 (04:03→18:06)
[2018-03-06] MEDS: SOLU-MEDROL IV SCH ×3 (06:18→21:15)
[2018-03-06] MEDS ORDERED: HEPARIN IV PRN (06:59)
[2018-03-06] MEDS ORDERED: NS 2,000 ML MISC PRN (06:59)
[2018-03-06] MEDS ORDERED: TIGHT: 0.2 ML/HR FOR DIALYSIS MISC PRN (06:59)
[2018-03-06 07:17] LABS: ALBUMIN 3.1 g/dL (3.5-5.0); CALCIUM 8.3 mg/dL (8.8-10.2); CREATININE 6.5 mg/dL (0.7-1.2); PHOSPHORUS 8.6 mg/dL (2.7-4.5); POTASSIUM 5.1 mmol/L (3.5-5.1)
[2018-03-06 07:50] LABS: HEMATOCRIT 37.4 % (42.0-52.0); HEMOGLOBIN 11.3 g/dL (14.0-18.0); MCH 28.3 PG (27-31); MCHC 30.2 g/dL (33-37); MCV 93.7 FL (81-99); MPV 10.8 FL (7.4-10.4); RBC 3.99 XMIL (4.7-6.1); RDW 17.1 % (11.5-14.5); WBC 6.88 X1000 (4.8-10.8)
[2018-03-06] MEDS: MUCOMYST 10% INH SCH ×2 (08:01→19:30)
[2018-03-06] MEDS: PULMICORT INH SCH ×2 (08:02→19:30)
[2018-03-06] MEDS: HEPARIN SUBQ SCH ×3 (09:05→21:17)
[2018-03-06] MEDS: NORVASC PO SCH (09:08)
[2018-03-06] MEDS: MUCINEX PO SCH ×2 (09:08→21:15)
[2018-03-06] MEDS: CATAPRES PO SCH ×3 (09:08→18:07)
[2018-03-06] MEDS: CALTRATE 600 PO SCH (09:08)
[2018-03-06] MEDS: COREG PO SCH ×2 (09:09→21:14)
[2018-03-06] MEDS: VITAMIN D PO SCH (09:09)
--- NOTE | 2018-03-06 09:42 | PROGRESS NOTE ---
DATE: 03/06/2018 SUBJECTIVE: Mr. Blanton is comfortable, awake. He is supposed to get dialysis today. He is not sure about the plan for when he is supposed to get his fractured hip repaired. He is supposed to get, I think, an AV graft on the 10th of this month. OBJECTIVE: Vital Signs: Temperature 97.6 degrees, pulse 70, respirations 18, blood pressure 127/97. HEENT: Pupils are equal and round. Lungs: Clear in all lung ricardo. Cardiovascular Examination: Regular rhythm and rate without murmur or S3. Abdomen: Soft. Skin: Warm and dry. Is and Os: Urine output 1800 mL. ASSESSMENT AND PLAN: 1. Chronic kidney disease stage 5D. Electrolytes, acid base, volume status looked good. Dialysis today. 2. Hypertension. Blood pressures look like they have been fairly well controlled. Continue present medication. 3. Fractured femur, closed fracture. See if we can set up for when he is supposed to have repair. He believes he is supposed to have it done either at [facility] or in [place]. 4. Protein calorie malnutrition. He is eating much better. 5. Peripheral vascular disease. Aware. 6. History new onset seizure disorder. 7. History of coronary artery disease. 8. Review of his orders. I do not see any change. cc: José Miguel Badillo MD
--- NOTE | 2018-03-06 13:29 | NEPHROLOGY PROGRESS NOTE ---
DATE: 03/06/2018 TIME SEEN: 0805. SUBJECTIVE: Mr. Blanton is resting quietly in bed. Head of the bed is elevated. He is preparing to get his breathing treatment. Denies any discomfort. OBJECTIVE: Vitals: His most recent vital signs, last temperature 97.6 degrees , blood pressure 127/97, heart rate 71, respirations 14. He is on 4 L nasal cannula. Last recorded saturation 100%. General: This is a 47-year-old white male he is currently resting quietly in bed. He appears chronically ill, though no acute distress. Skin: Warm and dry. HEENT : Normocephalic, atraumatic. Conjunctiva is pale pink. He has MARITA. Mucous membranes are dry. Neck: Supple. Trachea midline. No JVD. Cardiovascular: Regular rate and rhythm. S4 is present. Lungs: Clear to auscultation bilaterally. Equal excursion on room air. Abdomen: Soft , nontender, positive bowel sounds. Genitourinary: Not inspected, with minimal void with dialysis assist. Extremities: No edema. Neurological: He is alert and oriented to person and to place. INPUT AND OUTPUT: He has had 1160 in. He has had 0 out with need for dialysis. LABORATORY: Sodium 135, potassium 5.1, chloride 92, CO2 16, BUN 105, creatinine 6.5, glucose 145. He has an anion gap of 27, calcium 8.3, phosphorus 8.6, albumin 3.1. White count 6.88, hemoglobin 11.3, hematocrit 37.4 with a platelet count of 191,000. ASSESSMENT AND PLAN: 1. Chronic kidney disease stage 5D. The patient is in need of dialysis today. We will place him on a 2K bath. He is to dialyze for 3.5 hours. We will attempt to pull him to his outpatient dry weight. 2. Electrolytes and acid-base balance with correction on dialysis. 3. Anemia. This is fairly acceptable. 4. He has a closed hip fracture on previous exam. We will defer to the Primary Care Team for further intervention and evaluation. I would like to thank you for allowing us to follow with this patient. Dictated by SNEHA Rae for González Arteaga MD Face to face encounter, data reviewed, discussed with Blanca Bernard on 03/06/18. I agree with the above assessment and plan of care. cc: SNEHA Rae MD MTDD
[2018-03-06] MEDS: LIPITOR PO SCH (21:15)
[2018-03-07] MEDS: ZOSYN 2.25 GM in NS 50 ML IV SCH ×3 (00:05→16:58)
[2018-03-07] MEDS: DILAUDID IV PRN ×4 (00:05→19:54)
[2018-03-07] MEDS: DUONEB (A & A) INH SCH ×6 (02:50→23:20)
[2018-03-07] MEDS: NORCO-7.5 PO PRN ×3 (03:16→17:01)
--- NOTE | 2018-03-07 04:09 | PULMONOLOGY PROGRESS NOTE ---
DATE: 03/06/2018 SUBJECTIVE: The patient is awake and alert. He reports his breathing has improved. He has a cough which sounds slightly productive. OBJECTIVE: Vital Signs: The patient has been afebrile for the last 24 hours. Blood pressure 105/91, heart rate 76, respiratory rate 15, oxygen saturation 100% on nasal cannula. HEENT: Pupils are equal and reactive. Oropharynx is clear. Neck: Supple. Chest: Reveals rhonchi bilaterally. Cardiac: S1, S2. Abdomen: Soft and without hepatosplenomegaly. Extremities: Reveal significant muscle wasting. LABORATORY DATA: Sputum culture from 03/01/2018 reveals Pseudomonas aeruginosa. White blood count 6.8, hemoglobin 11.3, platelet count 191,000. Sodium 135, potassium 5.1, chloride 92, bicarbonate 16, BUN 105, creatinine 6.5. IMPRESSION: The patient is a 47-year-old with severe chronic obstructive pulmonary disease, Pseudomonas aeruginosa pneumonia, acute hypoxemic and hypercapnic respiratory failure, ongoing tobacco use, and severe protein calorie malnutrition. Chest x-ray yesterday revealed clinical improvement. RECOMMENDATIONS: 1. Continue Zosyn for pseudomonal pneumonia. We will discontinue Zyvox with negative cultures for a gram-negative organism. 2. Strongly encourage the patient to discontinue all tobacco products. 3. Continue bronchial hygiene. 4. Encourage increased caloric intake. 5. Chest x-ray tomorrow morning. cc: Juve Tanner MD
[2018-03-07] MEDS: SOLU-MEDROL IV SCH ×3 (05:56→21:00)
[2018-03-07 07:08] LABS: HEMOGLOBIN 11.4 g/dL (14.0-18.0); MCH 29.1 PG (27-31); MCHC 30.8 g/dL (33-37); MCV 94.4 FL (81-99); MPV 11.7 FL (7.4-10.4); RBC 3.92 XMIL (4.7-6.1); WBC 11.34 X1000 (4.8-10.8)
[2018-03-07 07:16] LABS: ALBUMIN 3.2 g/dL (3.5-5.0); CALCIUM 8.1 mg/dL (8.8-10.2); CREATININE 4.9 mg/dL (0.7-1.2); PHOSPHORUS 6.2 mg/dL (2.7-4.5); POTASSIUM 4.4 mmol/L (3.5-5.1)
[2018-03-07] MEDS: PULMICORT INH SCH ×2 (07:30→19:45)
[2018-03-07] MEDS: MUCOMYST 10% INH SCH ×2 (07:30→19:45)
--- NOTE | 2018-03-07 08:15 | Diag Imaging Result Doc PS360 ---
EXAM: CHEST-2 VIEWS HISTORY: pneumonia TECHNIQUE: Chest two views COMPARISON: 03/05/2018 FINDINGS: There are dense infiltrates in the mid and lower left lung similar to the prior study. There is a right jugular portacatheter. No pneumothoraces. No cardiomegaly. No pleural effusions. IMPRESSION: Stable chest. Electronically signed by Dima Lopez 03/07/2018 8:13 AM
[2018-03-07] MEDS: VITAMIN D PO SCH (08:38)
[2018-03-07] MEDS: HEPARIN SUBQ SCH ×3 (08:38→19:54)
[2018-03-07] MEDS: MUCINEX PO SCH ×2 (08:38→19:50)
[2018-03-07] MEDS: COREG PO SCH ×2 (08:38→19:51)
[2018-03-07] MEDS: CALTRATE 600 PO SCH (08:39)
[2018-03-07] MEDS: CATAPRES PO SCH ×3 (08:39→16:58)
[2018-03-07] MEDS: NORVASC PO SCH (08:39)
--- NOTE | 2018-03-07 17:53 | PROGRESS NOTE ---
DATE: 03/07/2018 SUBJECTIVE: This morning Mr. Blanton refers to be doing fairly okay shortness of breath significantly improved. OBJECTIVE: Vitals: Blood pressure is 100/83, pulse of 80, respiration is 18, temperature 98 degrees. General: Mr. Blanton 47-year-old gentleman he is in bed. He looks a whole lot older than his age and he looks remarkably emaciated with BMI of 15.1, mucosa is pink and moist. Anicteric. Acyanotic. Neck: Supple. Chest: Clear to auscultation. No crepitations. No rhonchi. Cardiovascular: Regular rate and rhythm. There is a tunnel dialysis catheter on the right anterior chest wall. Abdomen: Soft, nontender. Bowel sounds present. Extremities: No pedal edema. Distal pulses are present but remarkably low . ADMINISTRATIVE SUPPORT SPECIALIST: Patient is awake and alert follows commands. LABORATORY DATA: WBC is 11.34, hemoglobin is 11.4, platelet count of 182,000. Chemistry is also reviewed fairly unremarkable consistent with end-stage renal disease. A chest x-ray this morning shows dense infiltrates in the mid and lower lobes similar to prior stable chest. CURRENT MEDICATIONS: Include Zosyn. ASSESSMENT: 1. Acute hypoxemic respiratory failure on presentation remarkably improved, patient is currently just on nasal cannula. 2. Left upper lobe pneumonia. Patient is currently on antibiotics seems to significantly improve. 3. Severe chronic obstructive pulmonary disease with pulmonary fibrosis noted. Patient is on nebulization, antibiotics and intravenous steroids. 4. Pulmonary edema secondary to congestive heart failure ejection fraction of 35 to 40 percent associated with inferior wall hypokinesis and global hypokinesis and also end-stage renal disease. Fluid status has significantly improved with dialysis. 5. Moderate pulmonary hypertension with pulmonary artery systolic pressure of 55 mmHg. 6. Protein calorie malnutrition with a remarkable cachexia on physical exams, will consult dietitian to help optimize the patient nutritional status 7. Previous comminuted fracture of the right acetabulum noted, patient was supposed to follow up with orthopedics for outpatient [facility] arrangement . 8. Pseudomonas pneumonia of the left upper lobe noted, patient is on Zosyn, today is day 6 on Zosyn for a total of 10 to 14 days . 9. End-stage renal disease, patient is on schedule hemodialysis. cc: Carlos Ying MD
[2018-03-07] MEDS: LIPITOR PO SCH (19:52)
[2018-03-08] MEDS: ZOSYN 2.25 GM in NS 50 ML IV SCH ×3 (00:46→17:15)
[2018-03-08] MEDS: NORCO-7.5 PO PRN ×3 (00:46→17:15)
[2018-03-08] MEDS: DILAUDID IV PRN ×4 (02:12→20:44)
[2018-03-08] MEDS: DUONEB (A & A) INH SCH ×6 (02:50→23:25)
--- NOTE | 2018-03-08 04:42 | PULMONOLOGY PROGRESS NOTE ---
DATE: 03/07/2018 SUBJECTIVE: The patient is awake, alert, and conversant. He is sitting in his bed. He is without specific complaints. He reports he does have some cough with occasional sputum production. OBJECTIVE: Vital Signs: The patient has been afebrile for the last 24 hours. Blood pressure 121/91, heart rate 77, respiratory rate 16, oxygen saturation 100 percent on 4 L per nasal cannula. HEENT: Pupils are equal and reactive. Oropharynx is clear. Neck: Supple. Chest: Reveals occasional rhonchi bilaterally. Cardiac: S1-S2. Abdomen: Soft. Extremities: Reveal marked decrease in muscle mass. LABORATORIES: Chest x-ray reveals infiltrate in the left mid lung zone, without significant change. IMPRESSION: Frail, chronically-ill, cachectic 47-year-old male, with severe chronic obstructive pulmonary disease, ongoing tobacco use, Pseudomonas pneumonia, acute hypoxemic and hypercapnic respiratory failure, with severe protein calorie malnutrition. Clinically, he continues to improve, but does have an infiltrate which persists on chest x-ray. RECOMMENDATION: 1. Continue Zosyn for pseudomonal pneumonia. Recommend transitioning patient to an oral dialysis- adjusted quinolone, for an additional 14-day treatment. 2. Strongly encourage patient to discontinue tobacco products. 3. Continue bronchial hygiene. 4. Encourage increased caloric intake. 5. Recommend followup chest x-ray after 2 weeks of oral antibiotics. cc: Juve Tanner MD
[2018-03-08] MEDS: SOLU-MEDROL IV SCH ×3 (06:44→20:44)
[2018-03-08 07:01] LABS: HEMOGLOBIN 12.1 g/dL (14.0-18.0); IMM GRAN# 0.02 X1000 (0.0-0.04); IMM GRAN% 0.2 % (0.0-0.5); LYMPH# 0.23 X1000 (1.2-3.4); LYMPH% 2.7 % (20.5-51.1); MCH 28.7 PG (27-31); MCV 92.4 FL (81-99); MONO# 0.22 X1000 (0.11-0.59); MONO% 2.6 % (1.7-9.3); MPV 11.2 FL (7.4-10.4); NEUT# 7.91 X1000 (1.4-6.5); NEUT% 94.5 % (42.2-75.2); PLT 182 X1000 (130-400); RBC 4.22 XMIL (4.7-6.1); RDW 17.4 % (11.5-14.5); WBC 8.38 X1000 (4.8-10.8)
[2018-03-08] MEDS ORDERED: HEPARIN IV PRN (07:02)
[2018-03-08] MEDS ORDERED: TIGHT: 0.2 ML/HR FOR DIALYSIS MISC PRN (07:02)
[2018-03-08] MEDS ORDERED: NS 2,000 ML MISC PRN (07:02)
[2018-03-08] MEDS: PULMICORT INH SCH ×2 (07:26→19:25)
[2018-03-08] MEDS: MUCOMYST 10% INH SCH (07:26)
[2018-03-08 07:57] LABS: PREALBUMIN 31.8 mg/dL (20-40)
[2018-03-08 08:04] LABS: CREATININE 5.6 mg/dL (0.7-1.2); PHOSPHORUS 8.6 mg/dL (2.7-4.5)
[2018-03-08] MEDS: MUCINEX PO SCH ×3 (08:42→20:46)
[2018-03-08] MEDS: COREG PO SCH ×3 (08:42→20:45)
[2018-03-08] MEDS: VITAMIN D PO SCH (08:42)
[2018-03-08] MEDS: CATAPRES PO SCH ×3 (08:42→17:15)
[2018-03-08] MEDS: CALTRATE 600 PO SCH (08:42)
[2018-03-08] MEDS: HEPARIN SUBQ SCH ×2 (08:43→20:44)
[2018-03-08] MEDS: NORVASC PO SCH (08:49)
[2018-03-08] MEDS: SENSIPAR PO SCH ×3 (09:05→20:45)
[2018-03-08] MEDS: LIPITOR PO SCH ×2 (09:24→20:45)
--- NOTE | 2018-03-08 13:21 | PROGRESS NOTE ---
DATE: 03/08/2018 SUBJECTIVE: This morning, Mr. Blanton refers to be doing fairly okay. Still hurting in the hip. For the most part, feeling okay. OBJECTIVE: Vital Signs: Blood pressure is 125/89, pulse is 80, respirations 22, temperature is 97.6. General: Mr. Blanton is a 47 year old gentleman. He is in bed. He is remarkably cachectic. Mucosa is pink and moist. Anicteric. Acyanotic. Neck is supple. No JVD. Chest: Good air entry bilateral. There were no crepitations. No rhonchi. Cardiovascular: Regular rate and rhythm. No murmurs, no rubs, no gallops. Abdomen is soft, nontender. Bowel sounds present. Extremities: No pedal edema. LIGHT ARMORED RECONNAISSANCE OFFICER: Patient is awake, alert, and oriented, follows commands. Musculoskeletal: There is a tunnel dialysis catheter on the right anterior chest wall. LABORATORY DATA: WBC is 8.38, hemoglobin is 12.1, platelet count of 182,000. Chemistry is also reviewed consistent with end-stage renal disease. Patient's PTH is 141, vitamin D level is normal. ASSESSMENT: 1. Acute hypoxemic respiratory failure on presentation, improved. 2. Pseudomonas pneumonia of the left upper lobe. The patient is on Zosyn; today is day 7. 3. Severe chronic obstructive pulmonary disease with pulmonary fibrosis noted on imaging. We will continue with pulmonary toilet, antibiotics, nebulization and steroids. 4. Congestive heart failure with ejection fraction of 25% to 40% percent associated with global hypokinesis noted. 5. Pulmonary edema on presentation secondary to congestive heart failure and end-stage renal disease. Moderate pulmonary hypertension with pulmonary artery systolic pressure of 55 mmHg on echo noted. 6. Protein calorie malnutrition. Dietitian has been consulted. 7. Endstage renal disease on scheduled hemodialysis. 8. Previous comminuted fracture of the right acetabulum noted. The patient is pending [facility] arrangement for orthopedics evaluation. 9. Secondary hyperparathyroidism. We started the patient on Sensipar. 10. Hyperphosphatemia secondary to end-stage renal disease. Patient is on PhosLo. cc: Carlos Ying MD
--- NOTE | 2018-03-08 13:24 | NEPHROLOGY PROGRESS NOTE ---
DATE: 03/08/2018 TIME SEEN: 0800 SUBJECTIVE: Mr. Blanton is resting quietly in bed. He is waiting for his breakfast, states that he is to be discharged today, and would like to be dialyzed early. VITAL SIGNS: His most recent vital signs show temperature 97.9 degrees, blood pressure 126/101, heart rate 89, respirations 18. He is on 2 L nasal cannula. Last recorded saturation 96%. He has had 588 in, 200 mL out to void. LABORATORY DATA: Sodium 136, potassium 5, chloride 93, CO2 21, BUN 94, creatinine 5.6, glucose 116. The patient's anion gap is 22, calcium 8, phosphorus 8.6, albumin 3, hydroxy D25 is 9.4 with a PTH of 141. White count 8.38, hemoglobin 12.1, hematocrit 39, platelet count 182,000. PHYSICAL EXAMINATION: General: This is a 47-year-old white male. He is currently resting quietly in bed. He appears chronically ill, no acute distress. Skin: Warm and dry. HEENT: Normocephalic, atraumatic. Conjunctivae pale pink. He has MARITA. Mucous membranes dry. Neck: Supple. Trachea midline. No JVD. Cardiovascular: Regular rate and rhythm. S4 is present. Lungs: Clear to auscultation bilaterally. Equal excursion on room air. Abdomen: Soft, nontender. Positive bowel sounds. Genitourinary: Not inspected. Minimal void with dialysis assist. Extremities: No edema. No clubbing or cyanosis. Neurological: He is alert and oriented to person and place. ASSESSMENT AND PLAN: 1. Chronic kidney disease stage 5D. The patient is in need for dialysis today. Will place him on a 2K bath. He is to dialyze for 3-1/2 hours. We will attempt to pull patient to his outpatient dry weight. 2. Electrolytes and acid-base balance with correction on dialysis. 3. Anemia. This is acceptable. 4. Closed hip fracture, followed by the primary care team. I would to thank you for allowing us to follow with this patient. Dictated by SNEHA Rae for González Arteaga MD Face to face encounter, data reviewed, discussed with Blanca Bernard on 03/08/17. I agree with the above assessment and plan of care. cc: SNEHA Rae MD MTDD
[2018-03-08] MEDS: PHOSLO PO SCH ×2 (14:01→17:15)
[2018-03-08] MEDS: MUCOMYST 20% INH SCH (19:25)
[2018-03-09] MEDS: NORCO-7.5 PO PRN ×2 (00:46→06:12)
[2018-03-09] MEDS: ZOSYN 2.25 GM in NS 50 ML IV SCH ×2 (00:46→07:47)
[2018-03-09] MEDS: DILAUDID IV PRN ×3 (01:55→14:30)
[2018-03-09] MEDS: DUONEB (A & A) INH SCH ×4 (03:25→15:32)
[2018-03-09] MEDS: SOLU-MEDROL IV SCH (06:12)
[2018-03-09 07:03] LABS: ALBUMIN 3.5 g/dL (3.5-5.0); CALCIUM 7.8 mg/dL (8.8-10.2); PHOSPHORUS 6.9 mg/dL (2.7-4.5); POTASSIUM 4.6 mmol/L (3.5-5.1)
[2018-03-09] MEDS: MUCOMYST 20% INH SCH (07:39)
[2018-03-09] MEDS: PULMICORT INH SCH (07:39)
[2018-03-09] MEDS: PHOSLO PO SCH ×2 (07:47→12:55)
[2018-03-09] MEDS: HEPARIN SUBQ SCH (07:47)
[2018-03-09] MEDS: NORVASC PO SCH (09:39)
[2018-03-09] MEDS: MUCINEX PO SCH (09:39)
[2018-03-09] MEDS: VITAMIN D PO SCH (09:39)
[2018-03-09] MEDS: SENSIPAR PO SCH (09:39)
[2018-03-09] MEDS: CATAPRES PO SCH ×2 (09:39→12:55)
[2018-03-09] MEDS: CALTRATE 600 PO SCH (09:40)
[2018-03-09] MEDS: COREG PO SCH (09:40)
[2018-03-09 13:11] VITALS: BP 95/54
--- NOTE | 2018-03-09 15:05 | NEPHROLOGY PROGRESS NOTE ---
DATE: 03/09/2018 TIME SEEN: 0740 SUBJECTIVE: Mr. Blanton is resting quietly. No complaints. VITAL SIGNS: Temperature 98 degrees, blood pressure 103/88, heart rate 72, respirations 18. He is on room air. Last recorded saturation 96%. He has had 780 in. He has had 4 L removed on dialysis. LABORATORY DATA: Sodium 138, potassium 4.6, chloride 95, CO2 18, BUN 75, creatinine 5, glucose 120. His anion gap is 25. His calcium is 7.8, phosphorus 6.9, albumin 3.5. The patient had a previous hemoglobin of 12.1 yesterday. PHYSICAL EXAMINATION: General: This is a 47-year-old white male. He is currently resting quietly in bed. His head of the bed is elevated. He is in no acute distress. Skin: Warm and dry. HEENT: Normocephalic, atraumatic. Conjunctivae pale. He has MARITA. Mucous membranes dry. Neck: Supple. Trachea midline. No JVD. Cardiovascular: Regular rate and rhythm. S4 is present. Lungs: Clear to auscultation bilaterally. Equal excursion on room air. Abdomen: Soft, nontender. Positive bowel sounds. Genitourinary: Not inspected. Minimal void with dialysis assist. Extremities: No edema. No clubbing or cyanosis. Neurological: He is alert and oriented x3, though he is weak. ASSESSMENT AND PLAN: 1. Chronic kidney disease stage 5D. The patient is due for his routine dialysis treatment in the a.m. We have discussed if he is discharged, he is to go to his outpatient treatment as prescribed. 2. Electrolytes, acid-base balance and anemia. These are all acceptable. 3. Fluid volume overload. This is improved during his hospital stay. I would to thank you for allowing us to follow with this patient. Dictated by SNEHA Rae for González Arteaga MD Face to face encounter, data reviewed, discussed with Blanca Bernard on 03/09/18. I agree with the above assessment and plan of care. cc: SNEHA Rae MD [facility]
--- NOTE | 2018-03-10 08:36 | DISCHARGE SUMMARY ---
ADMISSION DATE: 03/01/2018 DISCHARGE DATE: 03/09/2018 DISPOSITION: Is home. FOLLOWUP: 1. The patient follow-up will be with Dr. Arteaga. 2. Dr. Gaytan. CONSULTATION DURING THIS ADMISSION: 1. Nephrology was consulted. Patient was seen by Dr. Arteaga. 2. Pulmonary Medicine was consulted, patient was seen by Dr. Tanner. IMAGING DONE DURING THIS ADMISSION: None. IMAGING STUDIES OF SIGNIFICANCE: A CT scan of the chest without contrast did show bilateral infiltrate prominent in the left upper lobe, cardiomegaly, severe emphysema and fibrosis, evidence of prior granulomatous disease. Echocardiogram did show ejection fraction of 35 to 40 percent with inferior and mild global hypokinesis. Multiple chest x-rays did reveal stable findings. ADMISSION DIAGNOSES: 1. Acute hypoxemic and hypercarbic respiratory failure secondary to chronic obstructive pulmonary disease. 2. Left upper lobe pneumonia. 3. Congestive heart failure. 4. Coronary artery disease. 5. New onset of seizures. 6. Recent right hip fracture. 7. Anemia. DIAGNOSES AT THE TIME OF DISCHARGE: 1. Acute hypoxemic respiratory failure on presentation improved. 2. Pseudomonal pneumonia of the left upper lobe. 3. Severe chronic obstructive pulmonary disease with pulmonary fibrosis on exacerbation on presentation. 4. Congestive heart failure with ejection fraction of 35 to 40 percent associated with global hypokinesis. 5. Dilated ischemic cardiomyopathy. 6. Pulmonary edema on presentation secondary to congestive heart failure and end -stage renal disease. 7. Moderate pulmonary hypertension with pulmonary artery systolic pressure of 55 mmHg. 8. Protein calorie malnutrition. 9. Endstage renal disease on scheduled hemodialysis. 10. Secondary hyperparathyroidism secondary to end-stage renal disease. 11. Hyperphosphatemia secondary to end-stage renal disease. 12. Previous comminuted fracture of the right acetabulum. The patient is pending arrangements by the orthopedic team, (Dr. Bingham for [facility] consult). The patient is advised to call the orthopedics office to follow up on the [facility] arrangements. PRESENTING COMPLAINT: Shortness of breath. HISTORY OF PRESENT COMPLAINT: Mr. Blanton is a 47-year-old gentleman who presented to the emergency department in [place] because of shortness of breath. The patient was evaluated and was found to be remarkably hypoxemic and imaging studies revealed COPD exacerbation and possible pneumonia. The patient was subsequently admitted but transferred from [place] to [facility] for higher level of care. HOSPITAL COURSE: The patient was admitted to the medical floor, was dialyzed right away and that improved some of the shortness of breath. During the hospital course, he did have scheduled dialysis and was seen daily by Nephrology. Patient was also seen by Pulmonary Medicine. He was initially started on broad-spectrum IV antibiotics steroids and nebulization for the COPD. Sputum culture came back positive for Pseudomonas aeruginosa which was pansensitive. The patient was on Peptazol and was transitioned to Levaquin for outpatient therapy. Throughout the hospital course Mr. Blanton continued to improve. This morning, he refers to be doing a lot better. He got dialysis yesterday and shortness of breath is significantly improved. He is now down to his 3 L of nasal cannular saturating 100%. He is therefore being discharged. He will follow up with his regular dialysis schedule and he was also advised to follow up with Dr. Bingham for the [facility] arrangement for the right hip fracture. PLAN: All the discharge instructions have been discussed with Mr. Blanton and he voiced understanding. Time spent for discharge is 35 minutes. cc: MD Dr. Lukas Marie MD [facility]
== END 2018-03-09 16:03 | disposition home health service (06) | DRG 177 ==
LOC: ED 04:15 → EDIPHOLD 08:57 → SUATTDRO 08:57 → 4N 22:21
PROVIDERS: ATTEND Internal Medicine
CPT/HCPCS: 71010; 71020; 71045; 71046; 71250; 80053; 80069; 82306; 82310; 82550; 82607; 82728; 82746; 82805; 83540; 83550; 83970; 84100; 84134; 84484; 85025; 85027; 87040; 87070; 87077; 87186; 87205; 93005; 93306; 94640; 94660; 94761; 94799; 96365; 96367; 96375; 97162; 97530; 99285; A9270; J1170; J1644; J2020; J2270; J2543; J2930; J3370; J7030; J7608

== ENCOUNTER 2018-04-19 06:58 | Inpatient (IN) ==
[2018-04-19] MEDS ORDERED: NS 500 ML IV ONE (08:03)
[2018-04-19 08:11] LABS: INR 1.01; PROTIME 13.8 Seconds (11.0-16.0)
[2018-04-19 08:12] LABS: PTT 30.3 Seconds (22.3-41.8)
[2018-04-19 08:13] LABS: BASO# 0.01 X1000 (0.0-0.2); BASO% 0.1 % (0.0-0.8); HEMATOCRIT 33.6 % (42.0-52.0); HEMOGLOBIN 9.4 g/dL (14.0-18.0); IMM GRAN# 0.03 X1000 (0.0-0.04); IMM GRAN% 0.2 % (0.0-0.5); LYMPH# 0.62 X1000 (1.2-3.4); LYMPH% 3.5 % (20.5-51.1); MCH 27.6 PG (27-31); MCV 98.5 FL (81-99); MONO# 0.68 X1000 (0.11-0.59); MONO% 3.8 % (1.7-9.3); MPV 10.9 FL (7.4-10.4); NEUT# 16.57 X1000 (1.4-6.5); NEUT% 92.4 % (42.2-75.2); PLT 213 X1000 (130-400); RBC 3.41 XMIL (4.7-6.1); WBC 17.91 X1000 (4.8-10.8)
[2018-04-19 08:22] LABS: ALBUMIN 2.5 g/dL (3.5-5.0); CALCIUM 8.6 mg/dL (8.8-10.2); CREATININE 4.5 mg/dL (0.7-1.2); TOTAL BILIRUBIN 0.3 mg/dL (0.20-1.00); TOTAL PROTEIN 5.9 g/dL (6.3-8.3)
--- NOTE | 2018-04-19 08:27 | PROVIDER DOCUMENTATION ---
HPI-Abdominal Pain/GI Problem - General Chief Complaint: GI Bleed Stated Complaint: GI BLEED Time Seen by Provider: 04/19/18 07:35 Source: patient Allergies/Adverse Reactions: Patient Allergies Allergy/AdvReac Type Severity Reaction Status Date / Time No Known Allergies Allergy Verified 04/19/18 07:17 Home Medications: Home Medication List Medication Instructions Recorded Confirmed Last Taken Type Albuterol Sulfate 1 dose IH Q4HR PRN 01/04/18 04/07/18 04/04/18 History Atorvastatin Calcium [Lipitor] 40 mg PO QHS 01/04/18 04/07/18 04/06/18 19:00 History Budesonide/Formoterol Inhaler 1 puff IH BID 01/04/18 04/07/18 04/07/18 07:00 History [Symbicort 160/4.5 Microgm Inhaler] Carvedilol [Coreg] 25 mg PO BID 01/04/18 04/07/18 04/07/18 07:00 History Clonidine HCl [Catapres] 0.2 mg PO TID 01/04/18 04/07/18 04/07/18 07:00 History Amlodipine [Norvasc] 5 mg PO DAILY #120 tab 03/09/18 04/07/18 04/07/18 05:30 Rx Diphenhydramine [Benadryl] 2 cap PO QHS 03/20/18 04/07/18 04/06/18 16:00 History Fluticasone Propionate [24 Hour 1 spr INH DAILY 03/20/18 04/07/18 03/31/18 History Allergy] Ipratropium [place] Neb [Atrovent 1 dose INH Q4H PRN 03/20/18 04/07/18 03/31/18 History Neb] Lisinopril 40 mg PO DAILY 03/20/18 04/07/18 04/06/18 19:00 History Dronabinol 5 mg PO ORDERED 04/07/18 04/07/18 04/07/18 08:00 History Ferric Citrate [Auryxia] 210 mg PO 4XDAY 04/07/18 04/07/18 04/07/18 05:00 History Hydromorphone [Dilaudid] 2 mg PO Q4H PRN PRN 04/07/18 04/07/18 04/06/18 16:00 History Morphine Sulfate [Morphine Sulfate 30 mg PO BID 04/07/18 04/07/18 04/07/18 08: 00 History ER] - History of Present Illness-ABD Nature of Presenting Problems: balck tarry stool x 3 days. rectal red blood this morning. prior transfusions. currently recieving dialysis, . has lung and bone cancer. hx seizures. no CP or syncope. has large sacral decubitus Review of Systems - Adult - REVIEW OF SYSTEMS - ADULT Constitutional: reports: no symptoms reported, fatique. denies: chills, fever, night sweats Eyes: reports: no symptoms reported Ears, Nose, Mouth & Throat: reports: no symptoms reported Cardiovascular: reports: no symptoms reported Respiratory: reports: no symptoms reported Gastrointestinal: reports: no symptoms reported Genitourinary: reports: no symptoms reported Musculoskeletal: reports: no symptoms reported Integumentary: reports: no symptoms reported Neurological: reports: no symptoms reported Psychiatric: reports: no symptoms reported Endocrine: reports: no symptoms reported Hematologic/Lymphatic: reports: no symptoms reported Allergic/Immunologic: reports: no symptoms reported All Other Systems: Reviewed and Negative Past History - Adult - PAST MEDICAL HISTORY-ADULT Review of Records: reports: Old Records Reviewed, Nursing Assessment Review, Medications Reviewed, Social history reviewed & non-contributory. Major Childhood Illnesses: reports: denies history Cardiovascular: reports: denies history Respiratory: reports: denies history, other (lung cancer) Gastrointestinal: reports: denies history, GI bleed Obstetrical/Gynecological: reports: denies history Genitourinary: reports: dialysis, ESRD (dialysis) Musculoskeletal: reports: denies history Neurological: reports: denies history Psychiatric: reports: denies history Endocrine/Immune: reports: denies history Other Conditions: reports: denies history - PRIOR SURGERIES/PROCEDURES Surgical/Procedure History: reports: reviewed, not pertinent - IMMUNIZATION STATUS Childhood Immunizations: See Nurse Assessment Flu Vaccine: See Nurse Assessment - FAMILY HISTORY Family History: reviewed, not pertinent Physical Exam-General - PHYSICAL EXAM-ADULT Initial Vital Signs Reviewed: Yes - CONSTITUTIONAL General Appearance: no apparent distress, cachetic, thin. negative: slow to respond - EYES Eyes: PERRL/EOMI, pink conjunctivae - HEAD, EARS, NOSE, MOUTH & THROAT HENMT: normocephalic/atraumatic, moist mucous membranes - NECK Neck: full range of motion, supple - RESPIRATORY Respiratory: lungs clear, normal breath sounds, other (mild rales left base). negative: no accessory muscle use, respiratory distress, decreased breath sounds - CARDIOVASCULAR Cardiovascular: regular rate, rhythm, no edema, no gallop. negative: tachycardia - GASTROINTESTINAL (ABDOMEN) Abdominal Exam: non tender, soft, no organomegaly, other (rectal ; nl tone, thick black tarry stool. card sent to lab) - MUSCULOSKELETAL Extremity: normal range of motion, non-tender - SKIN Integumentary: other (large 8cm diameter decubitus presacral with skin breakdown and drainage) - NEUROLOGIC Neurologic: brick paving checker II-XII nml as tested, grossly normal, no motor/sensory deficits Progress - PLAN OF CARE/RESULTS Progress/Plan/Lab Results: Vital Signs - 8 hr 04/19/18 07:07 Temperature 97.5 F L Pulse Rate 94 H Respiratory Rate 20 Blood Pressure 156/90 Laboratory Results - last 24 hr 04/19/18 04/19/18 07:35 07:35 WBC 17.91 H RBC 3.41 L Hgb 9.4 L Hct 33.6 L MCV 98.5 MCH 27.6 MCHC 28.0 L RDW Std Deviation 20.0 H Plt Count 213 MPV 10.9 H Immature Gran % (Auto) 0.2 Neut % (Auto) 92.4 H Lymph % (Auto) 3.5 L Frio % (Auto) 3.8 Eos % (Auto) 0.0 Baso % (Auto) 0.1 Immature Gran # (Auto) 0.03 Neut # (Auto) 16.57 H Lymph # (Auto) 0.62 L Frio # (Auto) 0.68 H Eos # (Auto) 0.00 Baso # (Auto) 0.01 PT 13.8 INR 1.01 PTT (Actin FS) 30.3 Orders Category Date Time Status Saline Loc NOW Care 04/19/18 08:01 Active CHEST-PORTABLE [RAD] Stat Exams 04/19/18 08:02 Ordered CBC WITH ELECTRONIC DIFF [HEME] Stat Lab 04/19/18 07:35 Completed COMPREHENSIVE METABOLIC PANEL [CHEM] Stat Lab 04/19/18 07:35 Received LACTATE, PLASMA [CHEM] Stat Lab 04/19/18 08:01 Uncollected OCCULT BLOOD SCREEN STOOL PL Stat Lab 04/19/18 08:00 Ordered OCCULT BLOOD SCREEN STOOL PL Stat Lab 04/19/18 08:02 Ordered PROTIME WITH INR [COAG] Stat Lab 04/19/18 07:35 Completed PTT [COAG] Stat Lab 04/19/18 07:35 Completed TROPONIN T Stat Lab 04/19/18 08:15 Ordered TYPE & SCREEN [BBK] Stat Lab 04/19/18 07:35 Received 0.9% Sodium Chloride Inj [Ns] 500 ml Med 04/19/18 08:03 Active IV 999 mls/hr GI Bleed (possible) Stat Oth 04/19/18 08:00 Ordered EKG [EKG] Stat Ther 04/19/18 08:01 Ordered Result Diagrams: 04/19/18 07:35 04/19/18 07:35 - REASSESSMENT Reassessment #1 Time Reassessed: 09:35 Status: unchanged (HGB 9.4, NORMOTENSIVE, TROPONIN STAYS ELEVATED AND IS LOWER THAN USUAL READINGS. NO DISTRESS.) - CONSULTS/PCP/HOSPITALIST Notification #1 *Consult/PCP/Hospitalist*: DR HERNANDEZ Time Discussed: 09:34 Consult Disposition: other (SEE IF BEDS [facility]AIL[facility]) #2 Consult: VIRGIE SCHAFFER FOR DR ESPINO Consult Disposition: Admit (SEND OVER TO [facility] FOR ADMISSION CCU) Departure - Departure Date of Disposition Decision: 04/19/18 Time of Disposition Decision: 09:40 DIAGNOSIS: GI bleeding, ESRD (end stage renal disease) on dialysis, Weakness, Decubitus ulcer Disposition: ADMITTED INPATIENT 09 Certified Medical Emergency: Emergent Condition: Stable Referrals and Follow-Ups: None,PCP [Primary Care Provider] - - Critical Care Note This patient required my direct & personal management of CC.: Yes Total Time (mins): 33 Critical Care Statement: This patient required my direct personal management to treat or rule out processes, the absence of which, could potentiallly result in sudden, clinically significant life or limb threatening deterioration. Attestation - Physician/ PRICILA Attestation The physician spent face to face time with patient:: Yes Advanced Practice Provider documentation review:: Supervising physician onsite and consulted in the evaluation and care of this patient. The physician did have a face to face encounter with the patient.
--- NOTE | 2018-04-19 08:45 | Diag Imaging Result Doc PS360 ---
EXAM: CHEST-PORTABLE - 04/19/2018 HISTORY: sob TECHNIQUE: Portable chest COMPARISON: 04/07/2018 FINDINGS: There is ill-defined scarring with volume loss on the left similar to prior. There are stable small left pleural effusion versus mild pleural thickening. The right lung appears clear except for a couple small granulomas from old granulomatous disease. There is no pneumothorax identified. Heart size appears normal. Central venous catheter remains in place. IMPRESSION: Scarring with volume loss on the left similar to prior. No discrete acute changes. Electronically signed by Ar Castanon 04/19/2018 8:43 AM
[2018-04-19 08:52] LABS: OCCULT BLOOD 1 POSITIVE (NEGATIVE)
[2018-04-19] MEDS ORDERED: TYLENOL PO PRN (10:03)
[2018-04-19] MEDS ORDERED: ZOFRAN IV PRN (10:03)
[2018-04-19] MEDS ORDERED: NS 1,000 ML IV SCH (10:15)
--- NOTE | 2018-04-19 11:47 | HISTORY AND PHYSICAL ---
PRIMARY CARE PROVIDER: None. WEAVE DEFECT CHARTING CLERK: Dr. Ann in [place]. TRANSPORTATION SUPERVISOR: Dr. Jerez. CHIEF COMPLAINT: Three days of dark tarry stools. HISTORY OF PRESENT ILLNESS: Mr. Blanton is an unfortunate, 48-year-old, male who carries a past medical history of lung and bone cancer. He is followed by Dr. Jerez. His last treatment was this past . COPD, congestive heart failure, coronary artery disease, new onset of seizures, recent right hip fracture, anemia, end-stage renal disease on hemodialysis at the [facility], PE with history of DVT. He has a decubitus to his left hip as well as to his sacrum, and a new developing ulcer to his left inner thigh. He is on hemodialysis Tuesday, Tuesday, Tuesday. He reports that he has been having tarry stools for 3 days now. They brought him to the ED this morning because the amount of black tarry stools that he was having. However, the patient stated that he felt fine. While in the room doing examination, the patient had a BM that was bright red blood. We are checking a stat hemoglobin and hematocrit. He denies any fever, any chills, any dizziness, any syncopal episodes. No chest pain noted. No more shortness of breath than his usual. He is on home O2 for his COPD. He denied any abdominal pain. No nausea or vomiting. He does request to be a Do Not Resuscitate level 2. He does not want to be intubated. However, he would like medications and chest compressions. He does have a white count of 17, a hemoglobin and hematocrit of 9 and 34. BUN of 45, a creatinine of 4.5. Positive Hemoccult stool. He is being transferred to [facility] secondary to lack subspecialty, to follow up with Dr. Arteaga, Dr. Jerez, as well as Dr. Ray for GI. PAST MEDICAL HISTORY: 1. Congestive heart failure. 2. Coronary artery disease, status post stenting. 3. New onset of seizures. 4. Recent right closed hip fracture that has not been repaired. Per his sister , he has a fracture on the left as well that has not been repaired. 5. Anemia. 6. COPD, on home O2. 7. End-stage renal disease, on hemodialysis at the [facility] Tuesday, Tuesday, Tuesday. He follows Dr. Ann. 8. PE with DVT history. 9. Bedbound. 10. Protein calorie malnutrition. 11. Moderate pulmonary hypertension with pulmonary artery systolic pressure of 55. 12. Dilated ischemic cardiomyopathy. 13. Previous comminuted fracture of the right acetabulum. His last discharge, arrangements were being made by the orthopedic team, Dr. Bingham, for [facility] consult and he was advised to follow up at that time with orthopedics. PAST SURGICAL HISTORY: 1. Vas-Cath placement. 2. Testicular surgery at the age of 14. 3. Cardiac stents. SOCIAL HISTORY: He is . He now lives in [place] with his sister. He recently moved from [place]. No alcohol or illicit drug use. Continues to smoke cigarettes daily. FAMILY HISTORY: None. ALLERGIES: No known allergies. HOME MEDICATIONS: 1. Lipitor 40 mg p.o. at bedtime. 2. Benadryl 25 mg 2 capsules p.o. at bedtime p.r.n. 3. Albuterol sulfate 1 each inhaled q.4 hours. 4. Ipratropium bromide 1 puff inhaled q.4 hours. 5. Symbicort 160/4.5 mcg inhaler 1 puff RT b.i.d. 6. Calcium acetate 667 mg p.o. daily. 7. Coreg 25 mg p.o. b.i.d. 8. Vitamin D3 5000 units p.o. daily. 9. Sensipar 30 mg p.o. daily, 10. Catapres 0.2 mg p.o. t.i.d. 11. Dexamethasone 2 mg at 1600. 12. Dexamethasone 4 mg p.o. daily. 13. Marinol 5 mg p.o. b.i.d. 14. Twenty-Four Allergy 1 spray nasal daily. 15. Dilaudid 2 mg tablet p.o. q.4 to q.6 hours p.r.n. pain. 16. Morphine sulfate 30 mg p.o. b.i.d. 17. Lisinopril 40 mg p.o. daily. 18. Nifedipine ER 60 mg tablet p.o. daily. 19. Norvasc 5 mg p.o. daily. REVIEW OF SYSTEMS: A 14 point review of systems completely negative except for those mentioned in the HPI. PHYSICAL EXAMINATION: VITAL SIGNS: Temperature is 97.5 degrees, heart rate 68, respirations 20, blood pressure 115/63, O2 is 97% on 3 L nasal cannula. GENERAL: Mr. Blanton is an ill-appearing, 48-year-old, male lying on the stretcher. He just had a large bright red bloody BM. He is in no acute distress. HEENT: Atraumatic, normocephalic. PERRL. NECK: Supple. Trachea midline. CV: S1, S2 appreciated. No murmurs, gallops, or rubs noted. No JVD noted. PULMONARY: Bilateral breath sounds auscultated. No rales, rhonchi, or wheezes noted. GASTROINTESTINAL: His abdomen is soft, nontender. Positive bowel sounds in 4 quadrants. EXTREMITIES: He does have 2+ pitting edema. No cyanosis. NEUROLOGIC: Patient is awake, alert, and oriented. Follows commands and answers questions appropriately. SKIN: He does have a tunneled dialysis catheter to his right anterior chest wall. He does have what appears to be a decubitus to his left hip, a new forming ulcer to his left inner thigh, and a sacral decubitus ulcer, all present on admission. LABORATORY DATA: White count 17, hemoglobin and hematocrit 9 and 33, platelet count is 213,000. PT 13, INR 1.0. Sodium 136, potassium 4.0, BUN 45, creatinine 4.5, blood glucose is 108. Alkaline phosphatase 167. Troponin 0.259. Albumin is 2.5. Occult stool was positive. Chest x- ray, scarring with volume loss on the left, similar to prior. No discrete acute changes. ASSESSMENT AND PLAN: 1. Acute lower gastrointestinal bleed. We are sending off a stat hemoglobin and hematocrit to see if he requires a transfusion. He is currently hemodynamically stable. Awaiting transfer from [place] emergency department to [facility] for a gastroenterology consultation. We will make him nothing per oral. Continue gentle intravenous hydration. We will continue with serial hemoglobins and hematocrits, and transfuse as needed. IV PPI. 2. Leukocytosis. Chest x-ray shows no clear source of infection. We will check his urine as well as blood cultures. The patient is not febrile. He does not complain of any fever, chills, or cough. 3. End-stage renal disease, on hemodialysis. We will consult Dr. Arteaga. Appreciate his help with any medical management. 4. Lung and bone cancer, per sister at bedside. Getting treatments with Dr. Jerez. Last treatment was last . We will consult Dr. Jerez. Appreciate his assistance. 5. Protein calorie malnutrition. Aware. Patient will continue to be nothing per oral. We will continue with intravenous hydration given his gastrointestinal bleed. 6. Severe chronic obstructive pulmonary disease with pulmonary fibrosis. Continue supplemental oxygen, home bronchodilators. 7. Congestive heart failure as well as pulmonary hypertension. 8. Wounds present on arrival, left hip decubitus, sacral, and left upper thigh ulcer. We will consult wound care. We will need to document closely. 9. Previous right closed hip fracture. This is supposed to be taking care of at [facility]. This is a known right hip fracture. Per sister, his left hip is now fractured at this time. 10. Further recommendations to follow transfer to [facility], physician evaluation, laboratory and diagnostic data. 11. Critical care time spent, 30 minutes. Dictated by SNEHA Mercado for Jhon Mancia MD cc: Jhon Mancia MD MTDD
[2018-04-19] MEDS: ALBUTEROL NEB INH SCH ×4 (13:00→23:24)
[2018-04-19] MEDS: ATROVENT NEB INH SCH ×4 (13:00→23:24)
[2018-04-19] MEDS ORDERED: MS CONTIN PO SCH (13:15)
[2018-04-19] MEDS: MS CONTIN PO SCH (13:22)
[2018-04-19] MEDS: SODIUM CHLORIDE 0.9% INJ SCH (13:23)
[2018-04-19] MEDS: PROTONIX IV SCH (13:23)
[2018-04-19] MEDS: SANTYL OINT TOP SCH (15:44)
[2018-04-19] MEDS ORDERED: NS 2,000 ML ONE (16:28)
[2018-04-19] MEDS ORDERED: NS 2,000 ML MISC PRN (16:48)
--- NOTE | 2018-04-19 17:00 | GASTROENTEROLOGY CONSULTATION ---
DATE: 04/19/2018 REASON FOR CONSULTATION: Hematochezia. HISTORY OF PRESENT ILLNESS: Mr. Chuckie Blanton is a 48-year-old gentleman with a history of metastatic lung cancer with metastasis to the bone, brain, and lymph nodes. He also has history of COPD, on 2.5 L oxygen, ischemic cardiomyopathy, CHF, seizure disorder, chronic anemia, end- stage renal disease on hemodialysis on Tuesday, Tuesday, and Tuesday, multiple decubitus ulcers, severe protein-calorie malnutrition, and hip fractures. He presents from home with a one-day history of dark, red stools with blood clots. He complains of associated diffuse abdominal pain. No nausea or vomiting. He continues to have worsening appetite and some constipation. He does take aspirin 81 mg once daily. No chest pain. No hematemesis. No NSAID use. He had a recent PET scan at the [facility] about three weeks ago. PAST MEDICAL HISTORY: As per HPI. He does have a history of PE, DVT, as well as pulmonary hypertension. PAST SURGICAL HISTORY: He had testicular surgery and a vas cath placement. SOCIAL HISTORY: He is . He now lives in [place] with his sister. He recently moved from [place]. No alcohol or drug use. He is a daily smoker. FAMILY HISTORY: Maternal grandmother had gastric cancer. ALLERGIES: No known drug allergies. HOME MEDICATIONS: Lipitor, Benadryl, Albuterol, DuoNeb, Symbicort, calcium acetate, Coreg, vitamin D3, Sensipar, Catapres, dexamethasone, Marinol, allergy nasal spray, Dilaudid, morphine, lisinopril, nifedipine, Norvasc. PHYSICAL EXAMINATION: Vital Signs: Temperature 97.4, heart 57, respiratory rate 16, blood pressure 122/75, O2 saturation 89% on 3 L via nasal cannula. General: The patient is a chronic ill appearing, cachectic patient in mild distress secondary to pain. HEENT: Sclerae anicteric. Moist mucous membranes. Atraumatic and normocephalic. Neck: Supple. No JVD. No lymphadenopathy. Cardiac: Regular rate and rhythm. No murmurs, rubs or gallops. Pulmonary: Clear to auscultation bilaterally. No wheezing, rales, or rhonchi. Gastrointestinal: Abdomen is soft. Nondistended. Bowel sounds present. Mild diffuse tenderness to palpation throughout. Extremities: He has 1 to 2+ pedal edema on the right foot, none on the left. This is chronic. Neurologic: The patient answers questions appropriately, moving all extremities. Cranial nerves II-XII grossly intact. LABORATORY DATA: Sodium 136, potassium 4.0, chloride 94, bicarb 32, BUN 45, creatinine 4.5, lactate 2.1, glucose 108. White count 17.9, hemoglobin 9.4, platelets 213,000. Albumin 2.5. Total bilirubin 0.3. AST 26 and ALT 13. Alkaline phosphatase 167. INR 1.0. IMAGING: Chest x-ray shows no acute process. ASSESSMENT AND PLAN: Mr. Blanton is an unfortunate 48-year-old gentleman with metastatic lung cancer, chronic obstructive pulmonary disease, ischemic cardiomyopathy, congestive heart failure, and end-stage renal disease on hemodialysis. He comes in with acute on chronic anemia in the setting of hematochezia. His hemoglobin currently is 9.4 from 12.1 four to five weeks ago. Differential includes diverticular bleeding, bleeding polyps, angiectasias, metastatic lung cancer, gastrointestinal malignancy, unlikely brisk upper gastrointestinal bleeding given his stable hemodynamics. The patient is very malnourished and debilitated. It would be very difficult for him to prep and he is also a high anesthesia risk. Per patient and family, conferred at bedside, the patient has a Do Not Intubate and No Machines order, including shocks. Okay with chest compressions and medications to sustain his blood pressure. At this time, I would like to treat him supportively with n.p.o. status currently, proton pump inhibitor intravenously twice a day, and trend his hemoglobin and hematocrit every six to eight hours, transfuse as needed to maintain a hemoglobin of 7 to 8. Maintain intravenous access, gentle fluids given his end- stage renal disease. His leukocytosis is concerning for infection. He does have decubitus ulcers. Chest x-ray was negative. Blood cultures are pending. Lactate was 2.1. For his lung cancer, this is noted. His chronic obstructive pulmonary disease is stable on home oxygen. He does not appear to be in congestive heart failure exacerbation as well. For his end-stage renal disease will continue hemodialysis as per Nephrology. He has severe protein-calorie malnutrition and will address when patient is able to take oral. Appreciate Nutrition recommendations. We will follow with you. Please call with any questions or concerns.
[2018-04-19 17:36] LABS: HEMATOCRIT 26.6 % (42.0-52.0); HEMOGLOBIN 7.4 g/dL (14.0-18.0)
[2018-04-19] MEDS: MORPHINE IV PRN ×2 (18:29→23:28)
[2018-04-19] MEDS: SYMBICORT 160/4.5 MICROGM INHALER INH SCH (20:23)
--- NOTE | 2018-04-19 21:43 | HISTORY AND PHYSICAL ---
ADDENDUM: The patient was seen and examined by myself while in the ER. Full note dictated and discussed with nurse practitioner. The patient presented to the hospital with leg pain and fatigue. He was noted to have leukocytosis. Hemoglobin and hematocrit are stable at 9 and 30, although he is having heme- positive stools. He typically has hemodialysis on Tuesday, Tuesday and Tuesday. We will transfer him to [facility] [place] and follow. cc: Jhon Mancia MD
[2018-04-19 22:03] LABS: HEMATOCRIT 26.1 % (42.0-52.0); HEMOGLOBIN 7.2 g/dL (14.0-18.0)
[2018-04-20] MEDS: ALBUTEROL NEB INH SCH ×6 (03:25→23:15)
[2018-04-20] MEDS: ATROVENT NEB INH SCH ×6 (03:25→23:20)
[2018-04-20 05:57] LABS: HEMATOCRIT 26.1 % (42.0-52.0); HEMOGLOBIN 7.3 g/dL (14.0-18.0); MCH 28.1 PG (27-31); MCV 100.4 FL (81-99); RBC 2.6 XMIL (4.7-6.1); RDW 20.3 % (11.5-14.5); WBC 17.9 X1000 (4.8-10.8)
[2018-04-20] MEDS: MORPHINE IV PRN ×4 (06:02→22:31)
--- NOTE | 2018-04-20 06:46 | Diag Imaging Result Doc PS360 ---
CHEST-PORTABLE - 04/20/2018 INDICATION: Chest Pain COMPARISON: 04/19/2018 FINDINGS: Stable right-sided dialysis catheter. Stable advanced COPD. Stable infiltrate or scarring throughout the left lung base. Stable blunting of the left lateral costophrenic angle. Heart size remains borderline enlarged. IMPRESSION: No change from prior. Electronically signed by Kingsley Varma 04/20/2018 6:43 AM
--- NOTE | 2018-04-20 07:40 | EKG Report ---
Test Performed on : 04/20/2018 07:02:08 AM Test Reason : follow up Blood Pressure : / mmHG Vent. Rate : 084 BPM Atrial Rate : 084 BPM P-R Int : 126 ms QRS Dur : 102 ms QT Int : 396 ms P-R-T Axes : 083 059 181 degrees QTc Int : 467 ms Sinus rhythm. with premature atrial complexes. Left ventricular hypertrophy with repolarization abnormality Possible Inferior infarct (cited on or before 04-JAN-2018) Abnormal ECG When compared with ECG of 10-MAR-2018 15:36, (Unconfirmed) premature atrial complexes. are now present ST less depressed in Anterior leads T wave inversion less evident in Anterior leads Confirmed by Dario QUEVEDO, James Suarez ([id number]) on 04/20/2018 12:22:20 PM
[2018-04-20] MEDS: SYMBICORT 160/4.5 MICROGM INHALER INH SCH ×2 (07:41→19:35)
[2018-04-20 08:13] LABS: ALB/GLOB RATIO 0.8; ALBUMIN 2.4 g/dL (3.5-5.0); CALCIUM 7.8 mg/dL (8.8-10.2); CREATININE 2.8 mg/dL (0.7-1.2); MAGNESIUM 1.8 mg/dL (1.5-2.7); POTASSIUM 3.3 mmol/L (3.5-5.1); TOTAL BILIRUBIN 0.37 mg/dL (0.20-1.00); TOTAL PROTEIN 5.4 g/dL (6.3-8.3)
[2018-04-20] MEDS: SODIUM CHLORIDE 0.9% INJ SCH (08:30)
[2018-04-20] MEDS: SANTYL OINT TOP SCH (08:30)
[2018-04-20] MEDS: PROTONIX IV SCH (08:30)
[2018-04-20] MEDS: MS CONTIN PO SCH (08:30)
[2018-04-20 10:37] LABS: HEMATOCRIT 25.3 % (42.0-52.0); HEMOGLOBIN 7.1 g/dL (14.0-18.0)
--- NOTE | 2018-04-20 13:01 | Diag Imaging Result Doc PS360 ---
KUB ABDOMEN - 04/20/2018 INDICATION: Abd pain, R/O fecal impaction COMPARISON: None FINDINGS: There is moderate constipation throughout the colon. No small bowel obstruction. No evidence of free air. IMPRESSION: Moderate constipation. Electronically signed by Kingsley Varma 04/20/2018 12:58 PM
--- NOTE | 2018-04-20 13:27 | GASTROENTEROLOGY PROGRESS NOTE ---
DATE: 04/20/2018 SUBJECTIVE: Resting in bed. He is awake. He was NPO. He is awaiting a swallow evaluation. He has not had any bowel movements. OBJECTIVE: Vital signs: Temperature of 98.1, pulse of 88, respiratory rate 20, blood pressure 141/74, saturating 100% on 3 L. General Appearance: Thinly built, lying in bed, in no acute distress. HEENT: Pale conjunctivae. No icterus. Nasal cannula in place. Neck: Supple. Abdomen: Emaciated. Nondistended. No guarding. Extremities: No cyanosis, clubbing. He has a loss of muscles in the lower extremities and upper extremities. Neurologic: He is awake, alert, answers questions. LABORATORY DATA: His hemoglobin and hematocrit is 7.3 and 26.1, white count of 17.9, platelet count of 134,000. Sodium 140, potassium 3.3, chloride 101, bicarb 24, anion gap of 5, BUN of 30, creatinine 2.2, glucose of 52, calcium 7.8. Magnesium 1.8. Total bilirubin is 0.37. AST 32, ALT 12. Alkaline phosphatase 151, total protein is 5.4, albumin of 2.4. Stool for occult blood was positive. Blood cultures x2 were drawn yesterday, they are currently pending. Chest x-ray done today showed stable right-sided dialysis catheter. Stable advanced COPD, stable, infiltrate scarring throughout the left lung, stable blunting of the left lateral costophrenic angle. Heart size remains borderline enlarged. IMPRESSION AND PLAN: 1. Gastrointestinal bleeding. His hematocrit is low but there was no evidence of any overt GI bleeding. He is a poor surgical candidate for any kind of endoscopic procedure because of multiple medical comorbid conditions. We will treat him conservatively. We will have blood ready and transfuse as needed. We will keep him on proton pump inhibitors b.i.d. 2. The patient will be started on diet once he clears a swallow evaluation. 3. Anemia. Continue to watch for now, transfuse as needed. 4. Severe protein calorie malnutrition. He may need to have TPN if he continues to have poor oral intake. 5. Chronic obstructive pulmonary disease. Aware. 6. Lung and bone cancer. Aware. 7. Congestive heart failure. 8. Pulmonary hypertension. 9. End-stage renal disease on hemodialysis per Dr. Arteaga. Above plan discussed with the patient and nursing staff. All questions answered. Please call us with any questions. cc: MD Carlos Jo MD
--- NOTE | 2018-04-20 13:35 | GENERAL SURGERY CONSULTATION ---
DATE: 04/20/2018 HISTORY OF PRESENT ILLNESS: This is a 48-year-old gentleman, known to me with end-stage renal disease. I placed a fistula several weeks ago. He also has metastatic carcinoma, presumably GI, but possibly lung in etiology. Plans were to start therapy for this, but he developed lower GI bleed and presented profoundly cachectic. His family states he is not eating anything at home. He also has numerous decubitus wounds. MEDICAL HISTORY: Heart failure. Coronary disease. History of seizures and strokes. Hip fracture. COPD. End-stage renal disease. PE with history DVT. He is bedbound. Profound malnutrition. Pulmonary embolus. Ischemic cardiomyopathy. Acetabular fracture. SURGICAL HISTORY: Vas-Cath, left upper arm AV fistula, coronary stents, testicular surgery. SOCIAL HISTORY: Smokes. He is . No alcohol or drugs. He has a lot of family. FAMILY HISTORY: Reviewed and noncontributory. MEDICATIONS: Medication list is extensive and noted in the MAR; reviewed this. REVIEW OF SYSTEMS: Ten point negative otherwise. PHYSICAL EXAMINATION: Vitals: No fevers. Pulse 80s. Blood pressure 141/74. Oxygen saturation is 100% on 4 L. General: He is alert, obviously uncomfortable, profoundly cachectic. HEENT: No scleral icterus. Cardiovascular: Normal rate. Pulmonary: No increased work of breathing, but he is on nasal cannula. Abdomen: Soft. Integument: Warm and dry. Musculoskeletal: There are numerous wounds. He has a sacral wound, bilateral trochanteric wounds, gluteal wounds. All of these seem clean, with no necrosis, no cellulitis, no purulence, and pretty much a wound over most of his bony prominences which are impressive. Psychiatric: Somewhat agitated. Neurologic: Contracture in each extremity. Peripheral vascular: His left upper arm AV fistula has a strong thrill, and his hand is otherwise well perfused. DIAGNOSTIC DATA: White count is 17, hematocrit 26, this is somewhat stable. He has been transfused. Creatinine is 2.5, potassium 3.3, glucose 250s to 100s. Albumin is low at 2.4. Occult blood was positive. ASSESSMENT AND PLAN: This is a 48-year-old gentleman with multiple medical issues. I suspect this is end stages of his diseases, and he has a very grim prognosis. We will ask Rosibel to see him regarding his wounds, mostly this is going to be offloading and local wound care. I do not see signs of infection related to this. His GI bleed is a major issue, his metastatic carcinoma is a major issue, all in the setting of end-stage renal disease and cardiomyopathy. We will follow along but no plans for surgical intervention. cc: Carolin Henson MD
--- NOTE | 2018-04-20 14:05 | NEPHROLOGY CONSULTATION ---
DATE: 04/20/2018 REASON FOR ADMISSION: Several days of black tarry stools. REASON FOR CONSULT: End-stage renal disease with assistance with medical management. CONSULTING PHYSICIAN: Jhon Mancia MD, SNEHA Motta. HISTORY OF PRESENT ILLNESS: Mr. Blanton is a 48-year-old white male who has been seen by our services in the past on previous hospitalizations for need for hemodialysis during his hospital events. Unfortunately, patient has just had a recent diagnosis of lung cancer with bone metastasis. This is followed by Dr. Jerez. He was treated this past . The patient states that he goes to his hemodialysis treatments on Tuesday, Tuesday, Tuesday and had gone to his last treatment yesterday with no indications of any problems. He states that he was on hemodialysis on Tuesday. He started with black tarry stools. His sister brought him to the emergency room. At that time, he did state that he was feeling fine. In the emergency room, he was examined and had a bowel movement of bright red blood with continued weeping through his rectum. A stat hemoglobin was performed, found that he had a hemoglobin of 9 with hematocrit of 34, white count was 17. He was positive for Hemoccult stools. Subsequently, after being evaluated at [facility], he was transferred to [facility] , was then admitted to the floor for further monitoring and evaluation. The patient had 4 units of packed red blood cells ordered, though these were not transfused. He currently denies any chest pain. No increased work of breathing. No nausea/vomiting, though he states his appetite has been poor. No fever or chills. No recent lower extremity changes. No recent falls. The patient is followed by Dr. Jerez. Dr. Ray has been consulted. We have been consulted to follow and monitor his end-stage renal disease along with medical management. PAST MEDICAL HISTORY: 1. End-stage renal disease. Patient is followed by Dr. Ann. He dialyzes at the [facility] on Tuesday, Tuesday, Tuesday. 2. Congestive heart failure, coronary artery disease status post stenting. 3. New onset of seizures. 4. Recent right hip fracture that was not repaired. 5. Recent left hip fracture that had been repaired. 6. PE with a DVT history. 7. Protein malnutrition. 8. Patient is bed-bound. 9. He has moderate pulmonary hypertension and pulmonary artery systolic pressures of 55 last documented. 10. Dilated ischemic cardiomyopathy. 11. He has a history of comminuted fractures of the right acetabulum. He was to follow up with Dr. Bingham. He did have a [facility] consult and was requested to follow up at that time. 12. He has anemia of chronic disease, now currently acute active bleeding. PAST SURGICAL HISTORY: The patient has a history of Vas-Cath. He now has a fistula to the left upper arm. He has a history of tunnel catheters, testicular surgery the age of 14, cardiac stents. SOCIAL HISTORY: He has been . He lives in [place] with his sister. Recently moved here from [place]. Denies any alcohol or illicit drug use. He does continue to smoke daily. FAMILY HISTORY: No history of acute renal disease or chronic renal disease. ALLERGIES: Listed as no known drug allergies. HOME MEDICATIONS: Have been reconciled. Lipitor, Benadryl, albuterol sulfate, ipratropium bromide, Symbicort, calcium acetate, Coreg, vitamin D3, Sensipar, Catapres, dexamethasone, Marinol, allergy nasal spray, Dilaudid, morphine, lisinopril, nifedipine, and Norvasc. REVIEW OF SYSTEMS: Times 10 with pertinent positives listed above in the HPI. THE PATIENT'S MOST RECENT VITAL SIGNS: Temperature 98 degrees, blood pressure 140/81, heart rate 73, respirations are 20, he is on room air, last recorded saturation is 90%. INTAKE AND OUTPUT: He has had 748 in, 900 mL out, which was on dialysis yesterday evening, though he only remained on for 2-1/2 hours. LABORATORY DATA: Sodium 140, potassium 3.3, chloride 101, CO2 of 34, BUN 30, creatinine 2.8, glucose 52 (this has been treated), anion gap of 5, calcium 7.8. Magnesium 1.8. Albumin 2.4. Previous hemoglobin 7.1 with hematocrit of 25.3. On admission, patient had a PT of 13.8, INR of 1.01 with a PTT of 30.3. PHYSICAL EXAMINATION: General: This is a 48-year-old white male, currently resting in bed. He appears chronically ill. No acute distress at this time. Skin: Warm and dry. HEENT: Normocephalic, atraumatic. Conjunctiva is pale. He has MARITA. Mucous membranes are dry. Neck: Supple. Trachea midline. No evidence of JVD. Cardiovascular: Regular rate and rhythm. Lungs: Have faint crackles bilateral. He remains on O2. Equal excursion. Abdomen: Soft, nontender. Positive bowel sounds. Genitourinary: Not inspected. Minimal void with dialysis assist. Integumentary: The patient does have bruising to the bilateral upper extremities and some to the lower extremities. He has a fistula to the left upper arm. This is with palpable thrill. Neurological: He is alert and oriented x3. ASSESSMENT AND PLAN: 1. Chronic kidney disease, stage 5D. The patient had dialysis yesterday evening , though he only stayed on for 2-1/2 hours. The patient appears in a malnutrition state. There are no indications for dialysis today. We will plan for dialysis in the morning. 2. Acute lower gastrointestinal bleeding. Dr. Ray has been consulted. He is currently having transfusion of a PPI. He has been nothing by mouth for possible EGD and colonoscopy this morning. Transfusion had been held, though blood is available. 3. Electrolytes and acid-base balance. These are acceptable at this time. 4. Anemia. Hemoglobin remains stable. Again followed by Dr. Ray and primary care team. 5. Protein malnutrition. We will address this on dialysis with possible IDPN. I would like to thank you for allowing us to follow with this patient. Dictated by SNEHA Rae for González Arteaga MD Face to face encounter, data reviewed, discussed with Blanca Bernard on 04/20/18. I agree with the above assessment and plan of care. cc: SNEHA Rae MD [facility]
--- NOTE | 2018-04-20 18:16 | HEMO/ONC CONSULTATION ---
DATE: 04/20/2018 ADMITTING PHYSICIAN: Dr. Mancia. REQUESTING PHYSICIAN: Dr. Mancia. We appreciate this consult. CHIEF COMPLAINT: Lung mass. HISTORY OF PRESENT ILLNESS: Mr. Chuckie Blanton is a 48-year-old male, well known to Dr. Jerez with a history of lung mass with solitary brain metastasis and diffuse bone involvement. The patient has been placed on Opdivo with his 1st treatment being April 13. Additionally, he has been placed on Decadron secondary to solitary lung mass. The patient also has a history of COPD, congestive heart failure, coronary artery disease, recent hip fracture, anemia, end-stage renal disease on hemodialysis, pulmonary embolism, and DVT. Additionally, the patient has a decubitus to his left hip and sacrum and left inner thigh. On day of admission, the patient reported that he had been having 3 days of dark tarry stool. After presentation to [facility] Emergency Department, the patient had a bright red bloody bowel movement. The patient is admitted for acute GI bleed. We are consulted as the patient is well known to us. PAST MEDICAL HISTORY: As in HPI. PAST SURGICAL HISTORY: 1. Vas-Cath placement. 2. Testicular surgery, age 14. 3. Cardiac stents. SOCIAL HISTORY: The patient smokes cigarettes daily. He does not use alcohol or illicit drugs. FAMILY HISTORY: Negative for any hematologic or oncologic disease. MEDICATIONS ON ADMISSION: 1. Lipitor. 2. Benadryl. 3. Albuterol. 4. Ipratropium bromide. 5. Symbicort. 6. Calcium acetate. 7. Coreg. 8. Vitamin D3. 9. Sensipar. 10. Catapres. 11. Dexamethasone. 12. Marinol. 13. Allergy tablet. 14. Dilaudid. 15. Morphine. 16. Lisinopril. 17. Nifedipine. 18. Norvasc. ALLERGIES: The patient has no known drug allergies. REVIEW OF SYSTEMS: A 14 point review of systems was obtained and is negative except for as mentioned in HPI. PHYSICAL EXAMINATION: General: Mr. Blanton is a pleasant, 48-year-old, chronically ill-appearing male, lying supine in bed, in no immediate distress. Vital Signs: Temperature 98.1, blood pressure 141/74, heart rate 88, respirations 20, O2 saturation 100% on 3 L nasal cannula O2. HEENT: Normocephalic, atraumatic. Mucous membranes pale and moist. Sclerae anicteric. Extraocular movements intact. Neck: Supple. Lungs: With coarse breath sounds throughout. CV: S1, S2 is heard. No murmurs, rubs or gallops. Abdomen: Nondistended. Tender to palpation in the epigastrium. Bowel sounds positive in all quadrants. No rebound or guarding noted. Extremities: Without clubbing, cyanosis, or edema. Dermatologic: No rashes, bruises, or lesions. Neurologic: The patient is awake, alert, and oriented x3. Has no focal deficit. LABORATORY DATA: Hemoglobin 7.3, hematocrit 26.1, white blood cell count 17.90, platelets 174,000. Sodium 140, potassium 3.3, chloride 101, CO2 is 34, BUN 30, creatinine 2.8, and glucose is 52. Alkaline phosphatase 151, with other LFTs being within normal limits. IMAGING STUDIES: Chest x-ray reveals no acute abnormality and scarring with volume loss on the left. ASSESSMENT AND PLAN: 1. Lung mass with solitary brain metastasis and diffuse bone involvement, on Opdivo, last treatment being April 13, 2018. Additionally the patient is on Decadron. 2. Acute gastrointestinal bleed. Per Gastroenterology. 3. Leukocytosis with cultures currently pending. On antibiotics per Hospitalist. 4. End-stage renal disease. On hemodialysis per Dr. Arteaga. 5. Malnutrition. The patient is NPO at this time secondary to #2. 6. Severe chronic obstructive pulmonary disease. Per Hospitalist. 7. Anemia of chronic disease. Hemoglobin is 7.3. Would continue to monitor CBC and transfuse 1 unit packed red blood cells at this time. We will follow along with you and make further recommendations pending outcomes. The above reflects the history, exam assessment, and plan of Dr. Jerez. Dictated by SNEHA Palencia for Kj Jerez MD cc: SNEHA Palencia MD
[2018-04-21] MEDS: MORPHINE IV PRN ×6 (02:24→21:34)
[2018-04-21] MEDS: ALBUTEROL NEB INH SCH ×6 (03:39→22:55)
[2018-04-21] MEDS: ATROVENT NEB INH SCH ×6 (03:39→22:55)
[2018-04-21 05:55] LABS: EOS# 0.21 X1000 (0.0-0.7); EOS% 1.3 % (0.0-10.0); HEMATOCRIT 26.5 % (42.0-52.0); HEMOGLOBIN 7.4 g/dL (14.0-18.0); IMM GRAN# 0.04 X1000 (0.0-0.04); IMM GRAN% 0.2 % (0.0-0.5); LYMPH# 0.87 X1000 (1.2-3.4); LYMPH% 5.3 % (20.5-51.1); MCH 27.6 PG (27-31); MCHC 27.9 g/dL (33-37); MCV 98.9 FL (81-99); MONO% 4.8 % (1.7-9.3); MPV 10.8 FL (7.4-10.4); NEUT# 14.62 X1000 (1.4-6.5); NEUT% 88.4 % (42.2-75.2); PLT 225 X1000 (130-400); RBC 2.68 XMIL (4.7-6.1); RDW 20.4 % (11.5-14.5); WBC 16.54 X1000 (4.8-10.8)
[2018-04-21] MEDS ORDERED: TIGHT: 0.2 ML/HR FOR DIALYSIS MISC PRN (05:56)
[2018-04-21] MEDS ORDERED: NS 2,000 ML MISC PRN (05:56)
[2018-04-21] MEDS ORDERED: HEPARIN IV PRN (05:56)
[2018-04-21 06:09] LABS: ALB/GLOB RATIO 0.7; ALBUMIN 2.2 g/dL (3.5-5.0); CALCIUM 7.3 mg/dL (8.8-10.2); CREATININE 3.5 mg/dL (0.7-1.2); MAGNESIUM 1.9 mg/dL (1.5-2.7); PHOSPHORUS 3.6 mg/dL (2.7-4.5); POTASSIUM 3.6 mmol/L (3.5-5.1); PREALBUMIN 7.8 mg/dL (20-40); TOTAL BILIRUBIN 0.44 mg/dL (0.20-1.00); TOTAL PROTEIN 5.5 g/dL (6.3-8.3)
[2018-04-21] MEDS: SYMBICORT 160/4.5 MICROGM INHALER INH SCH ×2 (08:11→19:30)
[2018-04-21] MEDS: MS CONTIN PO SCH (08:32)
[2018-04-21] MEDS: SODIUM CHLORIDE 0.9% INJ SCH (08:33)
[2018-04-21] MEDS: PROTONIX IV SCH (08:33)
[2018-04-21] MEDS: SANTYL OINT TOP SCH (08:33)
--- NOTE | 2018-04-21 13:35 | NEPHROLOGY PROGRESS NOTE ---
DATE: 04/21/2018 SUBJECTIVE: He states he feels better today. No further bleeding. OBJECTIVE: Vital Signs: Blood pressure 147/81, heart rate 90, respirations 14, afebrile. General: Chronically ill, emaciated, but no distress. Skin: Warm and dry. Neck: Neck veins are not distended. Heart: Regular. Lungs: Equal with a few wheezes. Abdomen: Benign. Extremities: No edema. IMPRESSION AND PLAN: Chronic kidney disease 5D. He will have his routine hemodialysis treatment today. Electrolytes and acid-base are in target. Hemoglobin is 7.4 this morning. He has 4 units of packed red blood cells that are ready for transfusion. We will give 2 units today. cc: González Arteaga MD
--- NOTE | 2018-04-21 13:51 | PROVIDER PROGRESS NOTE ---
Progress Note - - SUBJECTIVE: No acute overnight events. Afebrile. No N/V/F. Tolerating diet. Minimal abdominal pain. BM+. No further rectal bleeding. OBJECTIVE: Last Vital Signs Temp 98.5 F 04/21/18 12:00 Pulse 95 H 04/21/18 12:00 Resp 17 04/21/18 12:00 BP 147/80 04/21/18 12:00 Pulse Ox 100 04/21/18 12:00 Height 5 ft 8 in Weight 95 lb 9.6 oz General: The patient is a chronic ill appearing, cachectic patient NAD HEENT: Sclerae anicteric. Moist mucous membranes. Neck: Supple. No JVD. No lymphadenopathy. Cardiac: Regular rate and rhythm. No murmurs, rubs or gallops. Pulmonary: Clear to auscultation bilaterally. No wheezing, rales, or rhonchi. Gastrointestinal: Abdomen is soft. Nondistended, BS+, no rebound or guarding Extremities: pedal edema Neuro: nonfocal LABS: 04/21/18 04/21/18 05:05 05:05 WBC 16.54 H Hgb 7.4 L Plt Count 225 Sodium 136 Potassium 3.6 Chloride 98 Carbon Dioxide 24 L BUN 44 H Creatinine 3.5 H Glucose 96 D Total Bilirubin 0.44 AST 30 ALT 13 Alkaline Phosphatase 162 H Albumin 2.2 L A/P: Mr. Blanton is an unfortunate 48-year-old gentleman with metastatic lung cancer, chronic obstructive pulmonary disease, ischemic cardiomyopathy, congestive heart failure, and end-stage renal disease on hemodialysis who presented with acute on chronic anemia from hematochezia. His hgb has slowly drifted down to 7.4 without overt bleeding. His appears to be improving from a GI standpoint. Brother reports that patient has developed rashes in the past with transfusion. #Hematochezia: no overt bleeding. Continue PPI BID. Transfuse as need to maintain hgb 7-8 #Anemia: as above #Severe protein calorie malnutrition: encouraged PO intake #COPD: stable #Metastatic lung cancer: on Opdivo per Oncology. continue palliative care discussions #Leukocytosis: ?secondary to steroids vs. infected decubitus ulcers #CHF: stable #pHTN: stable #ESRD: HD per renal We do not anticipate endoscopic intervention at this time given patient's debilitated state, multiple medication problems, and anesthesia risk. Will follow with you. Please call with questions or concerns.
--- NOTE | 2018-04-21 16:44 | PROGRESS NOTE ---
DATE: 04/21/2018 This morning Mr. Blanton referred to be doing fairly okay. No acute complaints. OBJECTIVE: Vitals: Blood pressure is 147/80, pulse is 95, respiration is 17, temperature 98.5 degrees. General: Mr. Blanton 48-year-old gentleman he is in bed. He is not in any cardiopulmonary distress. Mucosa is pink and moist. Anicteric. Acyanotic. Neck: Supple. Chest: Air entry is bilaterally reduced, a few crackles posteriorly. Cardiovascular: Regular rate and rhythm. Abdomen: Soft, soft, nontender. Bowel sounds present. Extremities: Some trace pedal edema. FINISHER CARD TENDER: Patient is awake, alert, follows commands. Musculoskeletal: There is a tunnel dialysis catheter on the right anterior chest wall. On general exam Mr. Blanton looks extremely cachectic and chronically ill looking. LABORATORY DATA: WBC is 16.54, hemoglobin is 7.4, platelet count of 225,000. Chemistry is also reviewed, creatinine is 3.5. ASSESSMENT: 1. Hematochezia likely due to lower gastrointestinal bleed. Patient's hemoglobin and hematocrit seems to be fairly stable. He is however getting 2 units of packed red blood cells during dialysis today. 2. Endstage renal disease on hemodialysis. Nephrology has been consulted. 3. History of lung mass with solitary brain metastases and diffuse bone involvement concerning for metastatic lung cancer. The patient is currently status post 1st treatment of Opdivo with Dr. Jerez. 4. History of congestive heart failure ejection fraction of 35 to 40% noted. 5. Pulmonary hypertension with pulmonary artery systolic pressure of 55 mmHg secondary to left heart disease. 6. Generalized weakness and deconditioning with severe protein calorie malnutrition noted. Patient is on nutritional supplement. 7. Multiple skin ulcers including decubitus ulcers, patient is being seen by wound care and surgery. cc: Carlos Ying MD
[2018-04-21] MEDS ORDERED: BENADRYL IV ONE (20:13)
--- NOTE | 2018-04-21 20:15 | GENERAL SURGERY PROGRESS NOTE ---
DATE: 04/21/2018 SUBJECTIVE: Remains very weak. No fevers. OBJECTIVE: Vital signs: Pulse 95, blood pressure 147/80. General: He is alert, conversant. Integument: Warm and dry. Left upper arm fistula has a faint thrill. He has dressings on each of his decubitus wounds. LABORATORY DATA: White count is 16, hematocrit is 26. Creatinine is 3.5. ASSESSMENT/PLAN: A 48-year-old gentleman with metastatic carcinoma. He is profoundly malnourished and cachectic related to his metastatic carcinoma. He also has end-stage renal disease. He has numerous decubitus ulcers. Continue local wound care for these. He is on peripheral nutritional support. Gastroenterology does not have plans to scope him for his GI bleed, but this seems to be resolving. Very poor prognosis, and I do not suspect that the wounds are contributing but are secondary to his overall clinical situation. cc: Carolin Henson MD
[2018-04-22] MEDS: MORPHINE IV PRN ×2 (02:54→11:27)
[2018-04-22] MEDS: ALBUTEROL NEB INH SCH ×3 (03:18→10:50)
[2018-04-22 05:49] LABS: EOS# 0.18 X1000 (0.0-0.7); EOS% 1.4 % (0.0-10.0); HEMATOCRIT 35.7 % (42.0-52.0); IMM GRAN# 0.03 X1000 (0.0-0.04); IMM GRAN% 0.2 % (0.0-0.5); LYMPH# 0.61 X1000 (1.2-3.4); LYMPH% 4.9 % (20.5-51.1); MCH 28.6 PG (27-31); MCHC 30.8 g/dL (33-37); MONO# 0.75 X1000 (0.11-0.59); MPV 9.7 FL (7.4-10.4); NEUT# 10.86 X1000 (1.4-6.5); NEUT% 87.5 % (42.2-75.2); PLT 163 X1000 (130-400); RBC 3.84 XMIL (4.7-6.1); RDW 19.2 % (11.5-14.5); WBC 12.43 X1000 (4.8-10.8)
[2018-04-22 06:05] LABS: BANDS 2 % (0-1); LYMPHS 2 % (21-51); MONO 2 % (1-9); SEGS 94 % (42-75)
[2018-04-22 06:19] LABS: CREATININE 2.6 mg/dL (0.7-1.2); POTASSIUM 3.4 mmol/L (3.5-5.1)
[2018-04-22 06:29] LABS: CALCIUM 7.1 mg/dL (8.8-10.2)
[2018-04-22] MEDS: ATROVENT NEB INH SCH ×2 (07:38→10:50)
[2018-04-22] MEDS: MS CONTIN PO SCH (08:58)
[2018-04-22] MEDS: PROTONIX IV SCH (09:00)
[2018-04-22] MEDS: SANTYL OINT TOP SCH (11:30)
[2018-04-22 11:43] VITALS: BP 147/74
--- NOTE | 2018-04-22 12:00 | PROVIDER PROGRESS NOTE ---
Progress Note - - SUBJECTIVE: Transfused 2 units pRBCs yesterday. No acute overnight events. No N/ V/F, CP, SOB, abdominal pain. No BM since 1st day of admission. OBJECTIVE: Last Vital Signs Temp 98.5 F 04/22/18 11:42 Pulse 93 H 04/22/18 11:42 Resp 18 04/22/18 11:42 BP 147/74 04/22/18 11:42 Pulse Ox 100 04/22/18 11:42 Height 5 ft 8 in Weight 95 lb 9.6 oz General: The patient is a chronic ill appearing, cachectic patient NAD HEENT: Sclerae anicteric. Moist mucous membranes. Neck: Supple. No JVD. No lymphadenopathy. Cardiac: Regular rate and rhythm. No murmurs, rubs or gallops. Pulmonary: Clear to auscultation bilaterally. No wheezing, rales, or rhonchi. on 3L NC Gastrointestinal: Abdomen is soft. Non-distended, BS+, no rebound or guarding Extremities: no cce Neuro: nonfocal LABS: 04/22/18 04/22/18 05:10 05:10 WBC 12.43 H Hgb 11.0 L D Plt Count 163 Sodium 135 L Potassium 3.4 L Chloride 97 L Carbon Dioxide 25 BUN 31 H Creatinine 2.6 H A/P: Mr. Blanton is an unfortunate 48-year-old gentleman with metastatic lung cancer, chronic obstructive pulmonary disease, ischemic cardiomyopathy, congestive heart failure, and end-stage renal disease on hemodialysis who presented with acute on chronic anemia in setting of hematochezia. His hgb has slowly drifted down to 7.4 without overt bleeding. Hgb jumped to 11.0 after only 2 units pRBC yesterday. His GI bleeding has stopped. #Hematochezia: no overt bleeding. ddx includes diverticular, AVMs, polyps; cannot rule out mets/primary GI malignancy; continue PPI BID. Transfuse as need to maintain hgb 7-8 #Anemia: as above #Severe protein calorie malnutrition: encouraged PO intake #COPD: stable #Metastatic lung cancer: on Opdivo per Oncology. continue palliative care discussions #Leukocytosis: improving without need for abx #Decubitus ulcers: continue supportive treatments/wound care #CHF: stable #pHTN: stable #ESRD: HD per renal We will sign off at this time. We do not anticipate endoscopic intervention at this time given patient's debilitated state, multiple medication problems, and anesthesia risk. Please call with questions or concerns.
[2018-04-22] MEDS ORDERED: MORPHINE IV ONE (13:36)
--- NOTE | 2018-04-22 23:36 | DISCHARGE SUMMARY ---
ADMISSION DATE: 04/19/2018 DISCHARGE DATE: 04/22/2018 DISPOSITION: Home. FOLLOWUP: 1. With Dr. Arteaga. 2. With Dr. Jerez. 3. Discharged with hospice. ADMISSION DIAGNOSES: 1. Acute lower gastrointestinal bleed. 2. Leukocytosis. 3. End-stage renal disease. 4. Congestive heart failure. 5. Wounds. DIAGNOSES AT THE TIME OF DISCHARGE: 1. Hematochezia, likely due to lower gastrointestinal bleed. The patient was transfused 2 packed red blood cells. Hemoglobin and hematocrit were stabilized, and there was no overt ongoing bleeding. 2. End-stage renal disease, on hemodialysis. 3. History of lung mass with solitary brain metastasis and diffuse bone involvement concerning for metastatic lung cancer. The patient was given the 1st treatment of Opdivo with Dr. Jerez on April 13, 2018. 4. History of congestive heart failure with ejection fraction of 35% to 40%, clinically euvolemic. 5. Pulmonary hypertension with pulmonary artery systolic pressure of 55 mmHg. 6. Generalized weakness and deconditioning. 7. Severe protein-calorie malnutrition. 8. Multiple skin and decubitus ulcers. Wound Care and Surgery were on board. DISCHARGE MEDICATIONS: 1. Atorvastatin 40 mg p.o. at bedtime. 2. Clonidine 0.2 p.o. 3 times per day. 3. Carvedilol 25 mg b.i.d. 4. Amlodipine 5 mg daily. 5. Lisinopril 40 mg daily. 6. Dronabinol 5 mg b.i.d. 7. Pantoprazole 40 mg daily. 8. Morphine 30 mg daily. PRESENTING COMPLAINT: Three days of dark tarry stool. HISTORY OF PRESENTING COMPLAINT: Mr. Blanton is a 48-year-old gentleman with multiple comorbidities including end-stage renal disease, congestive heart failure, coronary artery disease, and new onset of seizures, who presented to the emergency department in [place] because of dark tarry stools. Of note, Mr. Blanton was just given 1 dose of Opdivo treatment April 13, 2018. Subsequently, he said he had been having this dark tarry stool so he went to the emergency department in [place] where he was evaluated, admitted, and transferred to [facility] for higher level of care and also for GI evaluation. HOSPITAL COURSE: Mr. Blanton was admitted to the critical care unit, was adequately hydrated, grouped and crossmatched, and was transfused 2 PRBCs. Hemoglobin improved from 7.1 to 11.0 at the time of discharge. During the hospital course, the patient did not have any more hematochezia. He was evaluated by GI, Dr. Hernandez, but because of his poor prognosis and debilitated state, surgery was advised against, especially because he was not having any ongoing active bleeding. Mr. Blanton was also seen on a daily basis by Nephrology. He did have 2 sessions of dialysis while he was here in the hospital. Mr. Blanton was seen by Surgery and Wound Care because of multiple ulcerations on the skin as well as on the sacral regions, and these were addressed on a daily basis. Mr. Blanton' general medical condition remains extremely poor. He does have what appears to be a metastatic lung cancer, being treated by Dr. Jerez. We do not have any pathology report, however, in our chart, but the patient follows up with Hematology/Oncology. At any point, Mr. Dobson performance status is remarkably poor. He and the family have made a decision to go home on hospice. Palliative Nurse was consulted, and the patient was seen by Ms. Amos. Today everything seems to have been arranged, and Mr. Blanton is going home with hospice. At some point, however, he did say that he might consider to continue dialysis and probably also continue with immunotherapy for the lung cancer. I have advised him to discuss this in detail with his Hematology/Oncology team as well as with his Nephrology team. All the discharge instructions were discussed with him. I had met multiple times the sister and the , and we have engaged in several conversations, especially about Mr. Blanton' poor medical status. This morning, his blood pressure is 147/74, pulse is 93, respiration is 18, temperature 98.5 degrees. Physical exam is unchanged. TIME SPENT FOR DISCHARGE: 36 minutes. cc: MD Kj Marie MD Reginald D. Gladish, MD
== END 2018-04-22 14:40 | disposition hospice, home (50) | DRG 377 ==
LOC: P.ED 06:58 → 3S 10:17 → SUATTDRO 10:17 → 3S 11:37 → UNDODISIN 04-21 12:32
PROVIDERS: ATTEND Internal Medicine
CPT/HCPCS: 36430; 71010; 71045; 74000; 74018; 80048; 80053; 82270; 83605; 83735; 84100; 84134; 84443; 84484; 85014; 85018; 85025; 85027; 85610; 85730; 86850; 86900; 86901; 86920; 87040; 92610; 93005; 93010; 94640; 94761; 96360; 99285; A9270; C9113; J1200; J2270; J7030; J7040; P9016; S0164